=== PATIENT | female | born 1950 | race American Indian/Alaskan Native ===

== ENCOUNTER 2016-08-31 06:42 | Day surgery (SDC) | payer MEDICARE ==
[2016-08-23 07:48] VITALS: BMI 43.3
[2016-08-31 07:17] LABS: ADD MANUAL DIFF? NO
[2016-08-31 07:21] LABS: BASO # 0.01 K/mm3 (0.0-2.0); BASO % 0.2 % (0.0-3.0); EOS # 0.2 (0.0-0.7); EOS % 4.9 % (1.5-5.0); GRAN % 41.8 % (50.0-68.0); HEMATOCRIT 34.7 % (36.0-48.0); LYMPH # 1.9 (1.2-3.4); LYMPH % 45.3 % (22.0-35.0); MEAN CORPUSCULAR HEMOGLOBIN 29.3 pg (25.0-35.0); MEAN CORPUSCULAR HGB CONC 33.7 g/dl (31.0-37.0); MEAN PLATELET VOLUME 9.4 fl (7.0-11.0); MONO # 0.3 (0.1-0.6); MONO % 7.8 % (1.0-6.0); PLATELET COUNT 223 10^3/uL (120.0-450.0); RED CELL DISTRIBUTION WIDTH 14.4 % (11.5-14.5); WHITE BLOOD COUNT 4.1 10^3/ul (4.5-11.0)
[2016-08-31 07:31] LABS: PARTIAL THROMBOPLASTIN TIME 29.5 Seconds (23.7-30.8)
[2016-08-31 07:32] VITALS: TEMP 98
[2016-08-31 07:34] LABS: AMYLASE 185 U/L (35-125); LIPASE 471 U/L (23-300)
[2016-08-31 08:11] LABS: ALB/GLOB RATIO 1.2 (1.1-1.8); ALKALINE PHOSPHATASE 77 U/L (38-133); ALT/SGPT 30 U/L (7-56); AST/SGOT 33 U/L (15-39); BILIRUBIN,TOTAL 0.4 mg/dL (0.2-1.3); BLOOD UREA NITROGEN 17 mg/dL (7-21); CALCIUM 9.5 mg/dL (8.4-10.5); CARBON DIOXIDE 25 mmol/L (21-33); CHLORIDE 108 mmol/L (95-110); GFR AFRICAN-AMERICAN > 60; GLUCOSE,RANDOM 112 mg/dL (70-110); POTASSIUM 3.8 mmol/L (3.6-5.0); SODIUM 139 mmol/L (132-148); TOTAL PROTEIN 7.3 g/dL (5.8-8.3)
[2016-08-31] MEDS ORDERED: Sodium Chloride 0.9% 1,000 ML IV SCH (08:15)
[2016-08-31] MEDS ORDERED: Phenylephrine 10 mg/ml Inj ONE (08:40)
[2016-08-31] MEDS ORDERED: ePHEDrine 50 mg/ml Inj ONE (08:40)
[2016-08-31] MEDS ORDERED: Propofol 10 mg/ml Inj (20 ML) ONE ×2 (08:42→09:23)
[2016-08-31 14:30] VITALS: BP 125/76; PULSE 58; RESP 14; O2SAT 98
== END 2016-08-31 13:00 | disposition home or self-care (01) ==
LOC: ENDO 06:42
PROVIDERS: ATTEND Internal Medicine Gastroenterology
DX: K25.9 Gastric ulcer, unspecified as acute or chronic, without hemorrhage or perforation (principal); K80.20 Calculus of gallbladder without cholecystitis without obstruction; K29.50 Unspecified chronic gastritis without bleeding
CPT/HCPCS: 36415; 43237; 43239; 80053; 82150; 82977; 83690; 85025; 85610; 85730; 88305; 88342; J2001; J2370; J2704; J3010; J7040 ×2

== ENCOUNTER 2017-04-30 08:47 | Day surgery (SDC) | payer MEDICARE ==
[2017-04-22 14:55] VITALS: BMI 43.0
[2017-04-30 09:53] VITALS: O2SAT 98
[2017-04-30] MEDS ORDERED: Propofol 10 mg/ml Inj (20 ML) ONE (10:42)
[2017-04-30 12:28] VITALS: BP 108/59; PULSE 60; RESP 18; TEMP 97.6
== END 2017-04-30 13:29 | disposition home or self-care (01) ==
LOC: ENDO 08:47
PROVIDERS: ATTEND Internal Medicine Gastroenterology
DX: K29.50 Unspecified chronic gastritis without bleeding (principal); K44.9 Diaphragmatic hernia without obstruction or gangrene; D50.9 Iron deficiency anemia, unspecified
CPT/HCPCS: 43239; 88305; 88342; J2001; J2704; J3010; J7040

== ENCOUNTER 2018-02-03 23:07 | Inpatient (IN) | payer MEDICARE, OTHER ==
[2018-02-03 23:10] VITALS: BMI 43.3
[2018-02-04] MEDS ORDERED: Morphine 2 mg/ml ISec IVP STA (00:08)
--- NOTE | 2018-02-04 01:19 | ED PDOC ---
Arrival/HPI - General Chief Complaint: Trauma Time Seen by Provider: 02/03/18 23:15 Historian: Patient - History of Present Illness Narrative History of Present Illness (Text): 02/03/18 23:51 67 year old female, with no significant past medical history, presents to the emergency department for evaluation, status post mechanical fall. Patient states she was walking at home and tripped over shoes. Patient states she landed on her right arm. Patient informs she is unable to move her right arm. Patient denies hitting head, loss of consciousness, headache, or any other complaints. Time/Duration: Prior to Arrival Symptom Onset: Sudden Context: Home Past Medical History - Provider Review Nursing Documentation Reviewed: Yes - Infectious Disease Hx of Infectious Diseases: None - Cardiac Hx Cardiac Disorders: Yes Hx Hypertension: Yes - Pulmonary Hx Respiratory Disorders: No - Neurological Hx Neurological Disorder: No Other/Comment: Neuropathy - HEENT Hx HEENT Disorder: No - Renal Hx Renal Disorder: No - Endocrine/Metabolic Hx Endocrine Disorders: Yes Hx Diabetes Mellitus Type 2: Yes - Hematological/Oncological Hx Blood Disorders: Yes Hx Blood Transfusions: Yes Hx Blood Transfusion Reaction: No - Integumentary Hx Dermatological Disorder: No - Musculoskeletal/Rheumatological Hx Musculoskeletal Disorders: No - Gastrointestinal Hx Gastrointestinal Disorders: No - Genitourinary/Gynecological Hx Genitourinary Disorders: No - Psychiatric Hx Psychophysiologic Disorder: No Hx Substance Use: No - Surgical History Hx Appendectomy: Yes (childhood) - Anesthesia Hx Anesthesia Reactions: No Hx Malignant Hyperthermia: No - Suicidal Assessment Feels Threatened In Home Enviroment: No Family/Social History - Physician Review Nursing Documentation Reviewed: Yes Family/Social History: No Known Family HX Smoking Status: Never Smoked Hx Alcohol Use: No Hx Substance Use: No Allergies/Home Meds Allergies/Adverse Reactions: Allergies No Known Allergies Allergy (Verified 02/03/18 23:10) Home Medications: Home Meds Medication Instructions Recorded Confirmed Aspirin 81 mg PO DAILY 02/19/15 02/04/18 Insulin Human NPH [Humulin N] 22 units SUBCUT QPM 02/19/15 02/04/18 Insulin Human NPH [Humulin N] 40 units SUBCUT ACB 02/19/15 02/04/18 Losartan Potassium [Cozaar] 100 mg PO DAILY 02/19/15 02/04/18 Terazosin HCl [Terazosin] 5 mg PO DAILY 02/19/15 02/04/18 Cholecalciferol (Vitamin D3) 1,000 iu PO DAILY 09/23/15 02/04/18 [Vitamin D] Eplerenone 50 mg PO DAILY 09/23/15 02/04/18 Hydrochlorothiazide [Microzide] 25 tab PO DAILY 08/31/16 02/04/18 Pregabalin [Lyrica] 150 mg PO BID 08/31/16 02/04/18 Omeprazole 20 mg PO DAILY 04/22/17 02/04/18 Multivitamin [K[employer] 1 ctb PO DAILY 11/26/17 02/04/18 Multivitamin] Review of Systems - Physician Review All systems were reviewed & negative as marked: Yes - Review of Systems Neurological: absent: Headache, Other (No head trauma; No LOC) Physical Exam Vital Signs Reviewed: Yes Vital Signs Temp Pulse Resp BP Pulse Ox 02/03/18 23:19 97.5 F L 59 L 18 147/55 L 98 Temperature: Afebrile Blood Pressure: Normal Pulse: Regular Respiratory Rate: Normal Appearance: Positive for: Well-Appearing, Non-Toxic, Comfortable Pain Distress: None Mental Status: Positive for: Alert and Oriented X 3 - Systems Exam Head: Present: Atraumatic, Normocephalic Pupils: Present: PERRL Extroacular Muscles: Present: EOMI Conjunctiva: Present: Normal Mouth: Present: Moist Mucous Membranes Neck: Present: Normal Range of Motion Respiratory/Chest: Present: Clear to Auscultation, Good Air Exchange. No: Respiratory Distress, Accessory Muscle Use Cardiovascular: Present: Regular Rate and Rhythm, Normal S1, S2. No: Murmurs Abdomen: No: Tenderness, Distention, Peritoneal Signs Back: Present: Normal Inspection Upper Extremity: Present: NORMAL PULSES, Tenderness (Diffuse tenderness to upper right arm). No: Normal ROM (Minimal movement) Lower Extremity: Present: Normal Inspection. No: Edema Neurological: Present: GCS=15, CN II-XII Intact, Speech Normal Skin: Present: Warm, Dry, Normal Color. No: Rashes Psychiatric: Present: Alert, Oriented x 3, Normal Insight, Normal Concentration Medical Decision Making ED Course and Treatment: 02/04/18 00:30 Impression: 67 year old female presents for evaluation status post mechanical fall. Plan: -- Labs -- Chest X-ray -- Morphine -- X-ray elbow right -- X-ray Humerus right -- X-ray shoulder right -- Reassess and disposition Prior Visits: Notes and results from previous visits were reviewed. Progress Notes: 02/04/18 00:[address] Ruff who admits patient to his service. Spoke with Dr Swann who states he will see patient in the morning. - RAD Interpretation Radiology Orders: 02/03/18 23:31 ELBOW RIGHT 3 VIEWS ROUTINE [RAD] Stat HUMERUS RIGHT [RAD] Stat SHOULDER RIGHT [RAD] Stat 02/04/18 00:32 CHEST ONE VIEW [RAD] Stat - Medication Orders Current Medication Orders: Discontinued Medications Morphine Sulfate (Morphine) 2 mg IVP STAT STA Stop: 02/04/18 00:09 - Scribe Statement The provider has reviewed the documentation as recorded by the Brigido Rios Provider Scribe Attestation: All medical record entries made by the Scribe were at my direction and personally dictated by me. I have reviewed the chart and agree that the record accurately reflects my personal performance of the history, physical exam, medical decision making, and the department course for this patient. I have also personally directed, reviewed, and agree with the discharge instructions and disposition. Disposition/Present on Arrival - Present on Arrival Any Indicators Present on Arrival: No History of DVT/PE: No History of Uncontrolled Diabetes: No Urinary Catheter: No History of Decub. Ulcer: No History Surgical Site Infection Following: None - Disposition Have Diagnosis and Disposition been Completed?: Yes Diagnosis: Comminuted fracture of humerus Disposition: HOSPITALIZED Disposition Time: 01:15 Condition: STABLE
[2018-02-04 02:23] LABS: BASO # 0.01 K/mm3 (0.0-2.0); BASO % 0.1 % (0.0-3.0); EOS % 0.1 % (1.5-5.0); GRAN # 7.09 (1.4-6.5); GRAN % 83.2 % (50.0-68.0); HEMOGLOBIN 10.7 g/dL (12.0-16.0); LYMPH # 1.1 (1.2-3.4); LYMPH % 12.4 % (22.0-35.0); MEAN CELL VOLUME 88.1 fl (80.0-105.0); MEAN CORPUSCULAR HEMOGLOBIN 28.4 pg (25.0-35.0); MEAN CORPUSCULAR HGB CONC 32.2 g/dl (31.0-37.0); MEAN PLATELET VOLUME 10.4 fl (7.0-11.0); MONO # 0.4 (0.1-0.6); MONO % 4.2 % (1.0-6.0); RBC 3.77 10^6/uL (3.5-6.1); RED CELL DISTRIBUTION WIDTH 15.3 % (11.5-14.5); WHITE BLOOD COUNT 8.5 10^3/uL (4.5-11.0)
[2018-02-04 02:47] LABS: ALB/GLOB RATIO 1.1 (1.1-1.8); ALBUMIN 4.1 g/dL (3.0-4.8); ALT/SGPT 28 U/L (7-56); AST/SGOT 31 U/L (14-36); BLOOD UREA NITROGEN 22 mg/dL (7-21); CALCIUM 9.4 mg/dL (8.4-10.5); GFR NON-AFRICAN AMERICAN 55
--- NOTE | 2018-02-04 07:21 | CP.PCM.HP ---
<ShayeSheldon mckenzie - Last Filed: 02/04/18 20:40> History of Present Illness - History of Present Illness History of Present Illness: H&P for Dr. Oquendo Service CC: Mechanical fall and right arm pain This is a 67 yo F with PMH of HTN and DMII with neuropathy who presents s/p mechanical fall onto right arm, with intractable pain, found to have humeral fracture on imaging. As per patient, tripped over her shoes and a plastic bag, did not hit her head or lose consciousness, but was unable to rise to standing position due to pain and disabled arm. Found down on ground by friend and helped up, then brought to [facility] [place] Reports unable to move right arm, but denies loss of motor control or sensation, no numbness, arm not resting limply, just too painful to move. Seen by Ortho (Dr. Swann) this AM, requesting second opinion. Otherwise appears to be resting comfortably in bed on current regimen at time of exam. Oriented to self, location, year, no signs of cervical/cranial bleeding/hematoma/bruising. Denies changes in vision, nausea, emesis, diarrhea, dysuria. 12-system reviewed and negative except as above. PMH: as above PSH: Appendectomy Fam Hx: denies relevant hx Soc Hx: denies tobacco/alcohol/illicits PMD: Dr. Soto Present on Admission - Present on Admission Any Indicators Present on Admission: No History of DVT/PE: No History of Uncontrolled Diabetes: No Review of Systems - Review of Systems All systems: reviewed and no additional remarkable complaints except (as per HPI) Past Patient History - Infectious Disease Hx of Infectious Diseases: None - Past Social History Smoking Status: Never Smoked - CARDIAC Hx Cardiac Disorders: Yes Hx Hypertension: Yes - PULMONARY Hx Respiratory Disorders: No - NEUROLOGICAL Hx Neurological Disorder: No Other/Comment: Neuropathy - HEENT Hx HEENT Problems: No - RENAL Hx Chronic Kidney Disease: No - ENDOCRINE/METABOLIC Hx Endocrine Disorders: Yes Hx Diabetes Mellitus Type 2: Yes - HEMATOLOGICAL/ONCOLOGICAL Hx Blood Disorders: Yes Hx Blood Transfusions: Yes Hx Blood Transfusion Reaction: No - INTEGUMENTARY Hx Dermatological Problems: No - MUSCULOSKELETAL/RHEUMATOLOGICAL Hx Musculoskeletal Disorders: No - GASTROINTESTINAL Hx Gastrointestinal Disorders: No - GENITOURINARY/GYNECOLOGICAL Hx Genitourinary Disorders: No - PSYCHIATRIC Hx Psychophysiologic Disorder: No Hx Substance Use: No - SURGICAL HISTORY Hx Appendectomy: Yes (childhood) - ANESTHESIA Hx Anesthesia Reactions: No Hx Malignant Hyperthermia: No Meds Allergies/Adverse Reactions: Allergies Allergy/AdvReac Type Severity Reaction Status Date / Time No Known Allergies Allergy Verified 02/03/18 23:10 Physical Exam - Constitutional Appears: Non-toxic, No Acute Distress - Head Exam Head Exam: ATRAUMATIC, NORMAL INSPECTION, NORMOCEPHALIC - Eye Exam Eye Exam: EOMI, Normal appearance. absent: Conjunctival injection, Scleral icterus Pupil Exam: absent: Irregular, Unequal - ENT Exam ENT Exam: Mucous Membranes Moist - Neck Exam Neck exam: Positive for: Full Rom, Normal Inspection - Respiratory Exam Respiratory Exam: Clear to Auscultation Bilateral, NORMAL BREATHING PATTERN. absent: Accessory Muscle Use, Chest Wall Tenderness, Decreased Breath Sounds, Rales, Rhonchi, Wheezes - Cardiovascular Exam Cardiovascular Exam: REGULAR RHYTHM, RRR, +S1, +S2. absent: Bradycardia, Tachycardia, Irregular Rhythm, JVD, +S4 - GI/Abdominal Exam GI & Abdominal Exam: Normal Bowel Sounds, Soft. absent: Diminished Bowel Sounds, Distended, Firm, Hyperactive Bowel Sounds, Hypoactive Bowel Sounds, Rigid, Tenderness - Extremities Exam Additional comments: Upper extremity: Left UE: unremarkable, full active and passive ROM, no deformity Right UE: in sling, held stiff, patient not allowing active or passive movement, distal sensation in hand intact (including 2-point discrimination) Lower extremity: Bilateral LE intact, full active/passive ROM, no pedal edema or tenderness, no swelling appreciated - Neurological Exam Additional comments: awake and alert, moving all extremities (except RUE) spontaneously, following all commands appropriately - Psychiatric Exam Psychiatric exam: Normal Affect, Normal Mood - Skin Skin Exam: Dry, Intact, Normal Color, Warm Results - Vital Signs Recent Vital Signs: Last Vital Signs Temp 99.6 F 02/04/18 03:37 Pulse 71 02/04/18 03:37 Resp 20 02/04/18 03:37 BP 146/76 02/04/18 03:37 Pulse Ox 99 02/04/18 03:37 - Labs Result Diagrams: 02/04/18 01:59 02/04/18 02:32 Labs: Laboratory Results - last 24 hr 02/04/18 02/04/18 01:59 02:32 WBC 8.5 RBC 3.77 Hgb 10.7 L Hct 33.2 L MCV 88.1 MCH 28.4 MCHC 32.2 RDW 15.3 H Plt Count 263 MPV 10.4 Gran % 83.2 H Lymph % (Auto) 12.4 L [place] % (Auto) 4.2 Eos % (Auto) 0.1 L Baso % (Auto) 0.1 Gran # 7.09 H Lymph # (Auto) 1.1 L [place] # (Auto) 0.4 Eos # (Auto) 0.0 Baso # (Auto) 0.01 Sodium 141 Potassium 4.4 Chloride 107 Carbon Dioxide 27 Anion Gap 11 BUN 22 H Creatinine 1.0 Est GFR ( Amer) > 60 Est GFR (Non-Af Amer) 55 Random Glucose 114 H Calcium 9.4 Total Bilirubin 0.4 AST 31 ALT 28 Alkaline Phosphatase 108 Total Protein 8.0 Albumin 4.1 Globulin 3.9 Albumin/Globulin Ratio 1.1 Assessment & Plan - Assessment and Plan (Free Text) Assessment: This is a 67 yo F with PMH of HTN and DMII with neuropathy who presents s/p mechanical fall onto right arm, with intractable pain, found to have humeral fracture on imaging. Pending 2nd ortho opinion prior to considering surgery. Plan: 1) Mechanical fall onto RUE with humeral fx -Ortho (Dr. Swann) consulted, appreciate his recs; recs conservative tx, collar/cuff and no weight bearing for 6 weeks -Dr. Baldwin (ortho) consulted for 2nd opinion, appreciate his recs; pending patient decision for OR vs non-OR, hip xray to r/o hip fx -Pain control 2) Chronic issues: -HTN: continue home losartan -DM: continue home insulin regimen -Neuropathy: continue lyrica Dispo: pending pt decision for surgical vs non-surgical management Ppx: SCDs for DVT Reviewed and discussed with attending, Dr. Oquendo <Carlin Oquendo S - Last Filed: 02/04/18 21:42> Results - Vital Signs Recent Vital Signs: Last Vital Signs Temp 99.6 F 02/04/18 03:37 Pulse 71 02/04/18 03:37 Resp 20 02/04/18 03:37 BP 146/76 02/04/18 03:37 Pulse Ox 99 02/04/18 03:37 - Labs Result Diagrams: 02/04/18 01:59 02/04/18 02:32 Labs: Laboratory Results - last 24 hr 02/04/18 02/04/18 02/04/18 01:59 02:32 07:30 WBC 8.5 RBC 3.77 Hgb 10.7 L Hct 33.2 L MCV 88.1 MCH 28.4 MCHC 32.2 RDW 15.3 H Plt Count 263 MPV 10.4 Gran % 83.2 H Lymph % (Auto) 12.4 L [place] % (Auto) 4.2 Eos % (Auto) 0.1 L Baso % (Auto) 0.1 Gran # 7.09 H Lymph # (Auto) 1.1 L [place] # (Auto) 0.4 Eos # (Auto) 0.0 Baso # (Auto) 0.01 PT 12.5 INR 1.09 APTT 28.6 Sodium 141 Potassium 4.4 Chloride 107 Carbon Dioxide 27 Anion Gap 11 BUN 22 H Creatinine 1.0 Est GFR ( Amer) > 60 Est GFR (Non-Af Amer) 55 POC Glucose (mg/dL) Random Glucose 114 H Calcium 9.4 Iron TIBC % Saturation Ferritin Total Bilirubin 0.4 AST 31 ALT 28 Alkaline Phosphatase 108 Total Protein 8.0 Albumin 4.1 Globulin 3.9 Albumin/Globulin Ratio 1.1 02/04/18 02/04/18 02/04/18 07:30 07:30 08:18 WBC RBC Hgb Hct MCV MCH MCHC RDW Plt Count MPV Gran % Lymph % (Auto) [place] % (Auto) Eos % (Auto) Baso % (Auto) Gran # Lymph # (Auto) [place] # (Auto) Eos # (Auto) Baso # (Auto) PT INR APTT Sodium Potassium Chloride Carbon Dioxide Anion Gap BUN Creatinine Est GFR ( Amer) Est GFR (Non-Af Amer) POC Glucose (mg/dL) 106 Random Glucose Calcium Iron 40 L TIBC 272 % Saturation 15 L Ferritin 18.8 Total Bilirubin AST ALT Alkaline Phosphatase Total Protein Albumin Globulin Albumin/Globulin Ratio 02/04/18 02/04/18 11:15 16:21 WBC RBC Hgb Hct MCV MCH MCHC RDW Plt Count MPV Gran % Lymph % (Auto) [place] % (Auto) Eos % (Auto) Baso % (Auto) Gran # Lymph # (Auto) [place] # (Auto) Eos # (Auto) Baso # (Auto) PT INR APTT Sodium Potassium Chloride Carbon Dioxide Anion Gap BUN Creatinine Est GFR ( Amer) Est GFR (Non-Af Amer) POC Glucose (mg/dL) 129 H 165 H Random Glucose Calcium Iron TIBC % Saturation Ferritin Total Bilirubin AST ALT Alkaline Phosphatase Total Protein Albumin Globulin Albumin/Globulin Ratio Assessment & Plan - Assessment and Plan (Free Text) Plan: Pt seen and examined. I have reviewed the note of the medical pathology teacher and agree with it. I have discussed the assessment and plan with the resident. I have reviewed the patient's labs and medications. Pt had a fall and has a R humeral fx. Pt will need ortho evaluation. Pt is on Losartan for HTN. She has DM-2 and will be on Insulin for coverage. She will continue with Lyrica for her neuropathy. She may need surgery. I will get Cardio to evaluate for pre-op. Pain is controlled.
[2018-02-04 07:54] LABS: INR 1.09; PARTIAL THROMBOPLASTIN TIME 28.6 Seconds (25.1-36.5); PROTHROMBIN TIME 12.5 SECONDS (9.4-12.5)
[2018-02-04] MEDS: Morphine 2 mg/ml ISec IVP PRN ×2 (08:38→14:57)
[2018-02-04] MEDS: Insulin Human NPH 1 UNITS/0.01 ML SC SCH ×2 (08:38→17:28)
--- NOTE | 2018-02-04 08:44 | CON ---
DATE OF CONSULTATION: 02/04/2018 ORTHOPEDIC CONSULTATION HISTORY OF PRESENT ILLNESS: The patient is a 67-year-old female who slipped and fell at home, landing on her right shoulder. X-ray shows a comminuted, mildly displaced fracture right proximal humerus, being right-hand dominant, and was closed injury. Good neurovascular status. When I saw her today in the morning of 02/04/2018, she was sitting up in bed. I told her that this fracture could be treated conservatively as long as she follows the instructions of not leaning on it and keeping the arm in a dependent position in a collar and a cuff that we could fabricate and to allow it to heal for 6 weeks, and as long as she does not put weight on it, she will have good results. Right after the conversation, she said she has another physician to go to, orthopedic that other family members use, so she is going to follow up with another orthopedic doctor and hopefully she does well and I will be around if she needs me. FINAL DIAGNOSIS: Comminuted fracture proximal humerus surgical neck with some impaction and hopefully could be treated conservatively with collar and cuff and dependency and no weightbearing on that right shoulder. Mauro Swann DO
[2018-02-04 09:36] LABS: IRON 40 ug/dL (45-180)
[2018-02-04 09:45] LABS: % IRON SATURATION 15 % (20-55); TOTAL IRON BINDING CAPACITY 272 ug/dL (265-497)
[2018-02-04] MEDS: Cholecalciferol 1,000 INTLU TAB PO SCH (09:55)
[2018-02-04] MEDS: TERAZOSIN HCL 5 MG PO SCH (09:56)
--- NOTE | 2018-02-04 10:20 | RAD ---
Date of service: 02/03/2018 PROCEDURE: Radiographs of the Right Shoulder HISTORY: s/p fall r/o fx COMPARISON: No prior. FINDINGS: BONES: There is a comminuted impacted fracture of the proximal right humerus at the level of the proximal metaphysis and inferior portion of the right humeral head. Several fragments are identified in the major distal fracture fragment appears not only impacted but also displaced posteriorly mildly. No dislocation. Degenerative changes seen the acromioclavicular joint and are advanced including prominent osteophyte development. JOINTS: As above. SOFT TISSUES: Normal. OTHER FINDINGS: None. IMPRESSION: Comminuted impacted fracture proximal metaphysis right humerus without dislocation. 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
--- NOTE | 2018-02-04 10:22 | RAD ---
Date of service: 02/04/2018 PROCEDURE: Radiographs of the right elbow. HISTORY: s/p fall r/o fx COMPARISON: No prior. FINDINGS: BONES: No acute fracture identified or dislocation. There are degenerative osteophytes or chronic avulsion/chip fracture seen related to the medial margins of the humeral ulnar joint with radiohumeral joint compartment unremarkable. JOINTS: Limited degenerative cortical sclerosis appreciate throughout the elbow joint with limited osteophyte development seen medially. SOFT TISSUES: Normal. JOINT EFFUSION: None. OTHER FINDINGS: None. IMPRESSION: No acute fracture or dislocation identified. Degenerative changes seen at the medial side of the elbow joint with small heterotopic calcification, chip or avulsion fracture components seen medial to the humeral ulnar segment of the joint.
--- NOTE | 2018-02-04 10:29 | RAD ---
PROCEDURE: Radiographs of the right humerus. HISTORY: s/p fall r/o fx COMPARISON: None. FINDINGS: BONES: A comminuted fracture of the proximal metaphysis right humerus is identified with impaction and posterior distraction of the major fracture fragment described in in detail in separate right shoulder radiograph series. No dislocation grossly evident. Remainder of the humerus appears otherwise intact. SOFT TISSUES: Normal. OTHER FINDINGS: None. IMPRESSION: Impacted, comminuted fracture proximal right humerus. Right humerus otherwise unremarkable. Please see separate right shoulder radiograph series 02/04/2018 for additional detail.
--- NOTE | 2018-02-04 10:30 | RAD ---
Date of service: 02/04/2018 HISTORY: r/o infiltrate COMPARISON: Chest radiograph 04/17/2012. FINDINGS: LUNGS: No acute infiltrate bilaterally. Linear atelectasis or fibrosis in the inferior left lung zone laterally. Positioning of the right chest obscures upper mediastinum. PLEURA: No significant pleural effusion identified, no pneumothorax apparent. CARDIOVASCULAR: No aortic atherosclerotic calcification present. Normal cardiac size. No pulmonary vascular congestion. OSSEOUS STRUCTURES: No significant abnormalities. VISUALIZED UPPER ABDOMEN: Normal. OTHER FINDINGS: None. IMPRESSION: No acute infiltrate or pleural effusion bilaterally. Limited linear atelectasis or fibrosis left base. No pulmonary vascular congestion.
[2018-02-04] MEDS: Insulin Reg-HIGH-Coverage SC SCH ×2 (11:21→17:27)
--- NOTE | 2018-02-04 14:28 | RAD ---
Date of service: 02/04/2018 PROCEDURE: Pelvis and right hip HISTORY: right hip pain COMPARISON: TECHNIQUE: Two views FINDINGS: There is joint space narrowing with bony sclerosis in the acetabulum. There is no flattening of the femoral head. No evidence of fracture IMPRESSION: Severe joint space narrowing in the right hip.
--- NOTE | 2018-02-04 14:59 | CON ---
DATE: 02/04/2018 REASON FOR CONSULTATION: Right proximal humerus fracture. HISTORY OF PRESENT ILLNESS: This is a 67-year-old female with past medical history of high blood pressure and insulin-dependent diabetes, who presented status post fall with complaints of right shoulder pain. The patient also states she has some mild right hip pain, but states that she is able to ambulate. She denies any other injuries. PHYSICAL EXAMINATION GENERAL: On exam, this is a female in no apparent distress. She is awake, alert, and oriented x3. She has a BMI of 43. EXTREMITIES: The right upper extremity is in a sling. Her skin is intact. Neurovascularly, she is intact distally, has pain with passive range of motion of the shoulder. Nontender over the elbow, forearm, wrist, or hand. She had a good capillary refill in all her fingers. Evaluation of the right hip shows that she has some pain with active right hip flexion. She is tolerating some gentle passive internal and external rotation of the hip without significant pain. Her thigh and calf are otherwise soft and nontender. Neurovascularly, she is intact. Evaluation of the left lower extremity shows that she has no pain with passive or active range of motion of the left lower extremity. There is no swelling or deformity. Neurovascularly, she is intact. DIAGNOSTIC DATA: X-rays of the right shoulder show a comminuted but impacted proximal surgical neck and greater tuberosity fracture with some mild displacement. X-rays of the elbow show no acute fractures or dislocations, and some degenerative changes are noted. IMPRESSION: Right proximal humerus fracture. PLAN: I discussed the treatment options with the patient including nonsurgical versus surgical management. Surgery would entail an open reduction and internal fixation of the fracture. The risks and benefits were discussed with the patient at length of both nonsurgical as well as surgical options including nonunion, malunion as well as infection. At this point, the patient wants to think about it and has not made a decision that she wants to proceed. In the meantime, we are going to go ahead and order right hip x-rays to make sure that there is no fracture there. We will follow up once the x-rays are complete. Yannick Baldwin MD
[2018-02-04] MEDS: Oxycodone/Acetaminophen 5/325 mg Tab PO PRN (17:28)
[2018-02-05 07:51] LABS: BASO # 0.01 K/mm3 (0.0-2.0); BASO % 0.2 % (0.0-3.0); EOS # 0.1 (0.0-0.7); EOS % 2.1 % (1.5-5.0); GRAN # 3.56 (1.4-6.5); HEMOGLOBIN 9.9 g/dL (12.0-16.0); LYMPH # 2.1 (1.2-3.4); LYMPH % 33.2 % (22.0-35.0); MEAN CORPUSCULAR HGB CONC 32.2 g/dl (31.0-37.0); MEAN PLATELET VOLUME 9.7 fl (7.0-11.0); MONO # 0.5 (0.1-0.6); MONO % 7.5 % (1.0-6.0); RBC 3.53 10^6/uL (3.5-6.1); RED CELL DISTRIBUTION WIDTH 15.5 % (11.5-14.5); WHITE BLOOD COUNT 6.2 10^3/uL (4.5-11.0)
[2018-02-05 08:05] LABS: INR 1.13
[2018-02-05 08:10] LABS: ALBUMIN 3.6 g/dL (3.0-4.8); ALT/SGPT 24 U/L (7-56); AST/SGOT 59 U/L (14-36); BLOOD UREA NITROGEN 21 mg/dL (7-21); CALCIUM 8.9 mg/dL (8.4-10.5); GFR NON-AFRICAN AMERICAN 55; PARTIAL THROMBOPLASTIN TIME 27.5 Seconds (25.1-36.5)
[2018-02-05] MEDS: Oxycodone/Acetaminophen 5/325 mg Tab PO PRN ×3 (08:19→23:52)
[2018-02-05] MEDS: Cholecalciferol 1,000 INTLU TAB PO SCH (09:43)
[2018-02-05] MEDS: Insulin Human NPH 1 UNITS/0.01 ML SC SCH ×3 (09:43→17:35)
[2018-02-05] MEDS: TERAZOSIN HCL 5 MG PO SCH (09:44)
[2018-02-05] MEDS: Insulin Reg-HIGH-Coverage SC SCH ×3 (09:44→17:34)
--- NOTE | 2018-02-05 11:22 | CP.PCM.PN ---
Objective - Vital Signs/Intake and Output Vital Signs (last 24 hours): Temp Pulse Resp BP Pulse Ox 98.1 F 68 20 140/62 100 02/05/18 06:00 02/05/18 06:00 02/05/18 06:00 02/05/18 06:00 02/05/18 06:00 Intake and Output: 02/05/18 02/05/18 06:59 18:59 Intake Total 540 Balance 540 - Medications Medications: Current Medications Acetaminophen (Tylenol 325mg Tab) 650 mg PO Q4H PRN PRN Reason: Pain, Mild (1-3) Aspirin (Ecotrin) 81 mg PO DAILY [facility] Last Admin: 02/05/18 09:41 Dose: 81 mg Cholecalciferol (Vitamin D) 1,000 intlu PO DAILY [facility] Last Admin: 02/05/18 09:43 Dose: 1,000 intlu Hydrochlorothiazide (Hydrodiuril) 25 mg PO DAILY [facility] Last Admin: 02/05/18 09:43 Dose: 25 mg Insulin Human NPH (Humulin N) 22 units SC QPM [facility] Last Admin: 02/04/18 17:28 Dose: 22 u Insulin Human NPH (Humulin N) 40 units SC ACB [facility] Last Admin: 02/05/18 09:43 Dose: Not Given Insulin Human Regular (Humulin R High) 0 units SC ACHS [facility]; Protocol Last Admin: 02/05/18 09:44 Dose: Not Given Losartan Potassium (Cozaar) 100 mg PO DAILY [facility] Last Admin: 02/05/18 09:43 Dose: 100 mg Morphine Sulfate (Morphine) 2 mg IVP Q4H PRN PRN Reason: Pain, severe (8-10) Last Admin: 02/04/18 14:57 Dose: 2 mg Non-Formulary Medication (Terazosin Hcl [Terazosin Hcl]) 5 mg PO DAILY [facility] Last Admin: 02/05/18 09:44 Dose: Not Given Oxycodone/Acetaminophen (Percocet 5/325 Mg Tab) 1 tab PO Q4H PRN PRN Reason: Pain, moderate (4-7) Stop: 02/07/18 08:11 Last Admin: 02/05/18 08:19 Dose: 1 tab Pregabalin (Lyrica) 150 mg PO BID [facility] Last Admin: 02/05/18 09:42 Dose: 150 mg - Labs Labs: 02/05/18 07:30 02/05/18 07:30 PT 13.0 SECONDS (9.4-12.5) H 02/05/18 07:30 INR 1.13 02/05/18 07:30 APTT 27.5 Seconds (25.1-36.5) 02/05/18 07:30
--- NOTE | 2018-02-05 11:42 | CARD ---
APPROVED REPORT Date of service: 02/05/2018 EKG Measurement Heart [id number] <Conclusion> Normal sinus rhythm Minimal voltage criteria for LVH, may be normal variant Borderline ECG
--- NOTE | 2018-02-05 11:56 | CP.PCM.PN ---
Subjective - Date & Time of Evaluation Date of Evaluation: 02/05/18 Time of Evaluation: 11:50 - Subjective Subjective: Patient seen and examined, alert and awake, sitting up in bed. Patient denies any significant pain, numbness or tingling. She states she decided she would like to proceed with the surgery. VSS On examination of the right shoulder, RUE sling in place. Skin is intact. No obvious deformity. Significant swelling. Tolerating active range of motion of wrist and fingers. Sensation intact to light touch. Grossly she is intact distally. R proximal humerus fracture The risks, benefits and alternatives were again discussed with the patient with both the treatment options including ORIF of the right proximal humerus fracture vs maintaining the sling and allowing fracture to heal in the position it is in. She states she wants to proceed with the surgery. At this time we will plan for OR on Saturday morning for ORIF right proximal humerus fracture. Discussed above with Dr. Baldwin, he agrees. For now, continue NWB of RUE. Maintain sling. Continuous ice. Cont pain control Begin discharging planning for after surgery Objective - Vital Signs/Intake and Output Vital Signs (last 24 hours): Temp Pulse Resp BP Pulse Ox 98.1 F 68 20 140/62 100 02/05/18 06:00 02/05/18 06:00 02/05/18 06:00 02/05/18 06:00 02/05/18 06:00 Intake and Output: 02/05/18 02/05/18 06:59 18:59 Intake Total 540 Balance 540 - Medications Medications: Current Medications Acetaminophen (Tylenol 325mg Tab) 650 mg PO Q4H PRN PRN Reason: Pain, Mild (1-3) Aspirin (Ecotrin) 81 mg PO DAILY [facility] Last Admin: 02/05/18 09:41 Dose: 81 mg Cholecalciferol (Vitamin D) 1,000 intlu PO DAILY [facility] Last Admin: 02/05/18 09:43 Dose: 1,000 intlu Hydrochlorothiazide (Hydrodiuril) 25 mg PO DAILY [facility] Last Admin: 02/05/18 09:43 Dose: 25 mg Insulin Human NPH (Humulin N) 22 units SC QPM [facility] Last Admin: 02/04/18 17:28 Dose: 22 u Insulin Human NPH (Humulin N) 40 units SC ACB [facility] Last Admin: 02/05/18 09:43 Dose: Not Given Insulin Human Regular (Humulin R High) 0 units SC ACHS [facility]; Protocol Last Admin: 02/05/18 09:44 Dose: Not Given Losartan Potassium (Cozaar) 100 mg PO DAILY [facility] Last Admin: 02/05/18 09:43 Dose: 100 mg Morphine Sulfate (Morphine) 2 mg IVP Q4H PRN PRN Reason: Pain, severe (8-10) Last Admin: 02/04/18 14:57 Dose: 2 mg Non-Formulary Medication (Terazosin Hcl [Terazosin Hcl]) 5 mg PO DAILY [facility] Last Admin: 02/05/18 09:44 Dose: Not Given Oxycodone/Acetaminophen (Percocet 5/325 Mg Tab) 1 tab PO Q4H PRN PRN Reason: Pain, moderate (4-7) Stop: 02/07/18 08:11 Last Admin: 02/05/18 08:19 Dose: 1 tab Pregabalin (Lyrica) 150 mg PO BID [facility] Last Admin: 02/05/18 09:42 Dose: 150 mg - Labs Labs: 02/05/18 07:30 02/05/18 07:30 PT 13.0 SECONDS (9.4-12.5) H 02/05/18 07:30 INR 1.13 02/05/18 07:30 APTT 27.5 Seconds (25.1-36.5) 02/05/18 07:30
--- NOTE | 2018-02-05 16:38 | CON ---
DATE: 02/05/2018 REQUESTING PHYSICIAN: Dr. Oquendo. REASON FOR CONSULTATION: Preoperative evaluation. HISTORY: This is a 67-year-old woman, known to us from previous outpatient assessments, who presented to the emergency room yesterday morning after a fall at home. She states that she tripped in her house and fell on her right arm. She was found to have a right humeral fracture and surgery is planned for later this week. She denies any lightheadedness or syncope. She is unaware of any palpitations. She has had no chest pain or exertional dyspnea. She does have a history of hypertension and diabetes. She was evaluated with a stress test within the past 1 to 2 years, which was reportedly unremarkable. PAST MEDICAL HISTORY: Her past medical history is notable for the problems mentioned above. She has undergone a prior hysterectomy and appendectomy. She has had no issues with anesthesia in the past. MEDICATIONS: Her medications at home include, aspirin, insulin, losartan, terazosin, eplerenone, hydrochlorothiazide, Lyrica, and omeprazole. ALLERGIES: NONE. SOCIAL HISTORY: She does not smoke or drink. FAMILY HISTORY: Unremarkable for premature heart disease. REVIEW OF SYSTEMS: Ten-point review of systems is otherwise unremarkable. PHYSICAL EXAMINATION: GENERAL: She is an obese, middle-aged woman. VITAL SIGNS: Her blood pressure is 140/60 with a pulse of 68, respirations are 16. She is afebrile. HEENT: Normocephalic and atraumatic. NECK: Thick. CHEST: Few scattered rhonchi heard. HEART: PMI displaced laterally with a soft systolic murmur at the lower left sternal border. ABDOMEN: Soft, obese, nontender, normoactive bowel sounds. EXTREMITIES: Right arm is in a sling. No peripheral edema noted. SKIN: Warm and dry. PSYCHIATRIC: Normal mood and affect. NEUROLOGIC: Alert and oriented x3. No gross motor or sensory deficits appreciable. DIAGNOSTIC DATA: Potassium 4.1, BUN and creatinine are 21 and 1.0. Hemoglobin and hematocrit are 9.9 and 30.7 with a white count of 6.2, platelet count is 238,000. Electrocardiogram was not found in the chart or electronic record. Chest x-ray reveals normal cardiac silhouette with mild basilar atelectasis. IMPRESSION: 1. Recent fall with resultant humeral fracture in need of surgical repair. 2. Multiple cardiac risk factors, given hypertension and diabetes with no clear evidence of active cardiac ischemia and a negative stress test in the recent past. RECOMMENDATIONS: An EKG will be performed this morning. Assuming this is unremarkable, she appears stable and optimized from a cardiac standpoint to proceed with surgery as planned. Her cardiac risk appears average for her age at this time. We will be happy to follow along and make further recommendations as appropriate. Nolan Chew MD
--- NOTE | 2018-02-05 17:37 | CP.PCM.PN ---
<Sheldon Cr - Last Filed: 02/05/18 17:29> Subjective - Date & Time of Evaluation Date of Evaluation: 02/05/18 Time of Evaluation: 07:30 - Subjective Subjective: Progress Note for Dr. Oquendo Service Patient seen and examined at bedside. No acute events overnight. Patient has elected to undergo surgical repair of humeral fracture with Dr. Baldwin, she will notify him today. Reports decreased hand movement, cannot fully clench right hand; sensation remains intact. Remains wearing sling. Objective - Vital Signs/Intake and Output Vital Signs (last 24 hours): Temp Pulse Resp BP Pulse Ox 98.4 F 74 18 114/72 98 02/05/18 14:00 02/05/18 14:00 02/05/18 14:00 02/05/18 14:00 02/05/18 14:00 Intake and Output: 02/05/18 02/05/18 06:59 18:59 Intake Total 540 Balance 540 - Medications Medications: Current Medications Acetaminophen (Tylenol 325mg Tab) 650 mg PO Q4H PRN PRN Reason: Pain, Mild (1-3) Aspirin (Ecotrin) 81 mg PO DAILY [facility] Last Admin: 02/05/18 09:41 Dose: 81 mg Cholecalciferol (Vitamin D) 1,000 intlu PO DAILY [facility] Last Admin: 02/05/18 09:43 Dose: 1,000 intlu Hydrochlorothiazide (Hydrodiuril) 25 mg PO DAILY [facility] Last Admin: 02/05/18 09:43 Dose: 25 mg Insulin Human NPH (Humulin N) 22 units SC QPM [facility] Last Admin: 02/04/18 17:28 Dose: 22 u Insulin Human NPH (Humulin N) 40 units SC ACB [facility] Last Admin: 02/05/18 12:00 Dose: 40 u Insulin Human Regular (Humulin R High) 0 units SC ACHS [facility]; Protocol Last Admin: 02/05/18 12:01 Dose: 4 u Losartan Potassium (Cozaar) 100 mg PO DAILY [facility] Last Admin: 02/05/18 09:43 Dose: 100 mg Morphine Sulfate (Morphine) 2 mg IVP Q4H PRN PRN Reason: Pain, severe (8-10) Last Admin: 02/04/18 14:57 Dose: 2 mg Non-Formulary Medication (Terazosin Hcl [Terazosin Hcl]) 5 mg PO DAILY [facility] Last Admin: 02/05/18 09:44 Dose: Not Given Oxycodone/Acetaminophen (Percocet 5/325 Mg Tab) 1 tab PO Q4H PRN PRN Reason: Pain, moderate (4-7) Stop: 02/07/18 08:11 Last Admin: 02/05/18 08:19 Dose: 1 tab Pregabalin (Lyrica) 150 mg PO BID [facility] Last Admin: 02/05/18 09:42 Dose: 150 mg - Labs Labs: 02/05/18 07:30 02/05/18 07:30 PT 13.0 SECONDS (9.4-12.5) H 02/05/18 07:30 INR 1.13 02/05/18 07:30 APTT 27.5 Seconds (25.1-36.5) 02/05/18 07:30 - Additional Findings Additional findings: - Constitutional Appears: Non-toxic, No Acute Distress - Head Exam Head Exam: ATRAUMATIC, NORMAL INSPECTION, NORMOCEPHALIC - Eye Exam Eye Exam: EOMI, Normal appearance. absent: Conjunctival injection, Scleral icterus Pupil Exam: absent: Irregular, Unequal - ENT Exam ENT Exam: Mucous Membranes Moist - Neck Exam Neck exam: Positive for: Full Rom, Normal Inspection - Respiratory Exam Respiratory Exam: Clear to Auscultation Bilateral, NORMAL BREATHING PATTERN. ab sent: Accessory Muscle Use, Chest Wall Tenderness, Decreased Breath Sounds, Rales, Rhonchi, Wheezes - Cardiovascular Exam Cardiovascular Exam: REGULAR RHYTHM, RRR, +S1, +S2. absent: Bradycardia, Tachycardia, Irregular Rhythm, JVD, +S4 - GI/Abdominal Exam GI & Abdominal Exam: Normal Bowel Sounds, Soft. absent: Diminished Bowel Sounds, Distended, Firm, Hyperactive Bowel Sounds, Hypoactive Bowel Sounds, Rigid, Tenderness - Extremities Exam Upper extremity: Left UE: unremarkable, full active and passive ROM, no deformity Right UE: in sling, held stiff, patient not allowing active or passive movement, distal sensation in hand intact (including 2-point discrimination), cannot fully close hand into fist (unable to close approx skilled nursing) Lower extremity: Bilateral LE intact, full active/passive ROM, no pedal edema or tenderness, no swelling appreciated - Neurological Exam awake and alert, moving all extremities (except RUE) spontaneously, following all commands appropriately - Psychiatric Exam Psychiatric exam: Normal Affect, Normal Mood - Skin Skin Exam: Dry, Intact, Normal Color, Warm Assessment and Plan - Assessment and Plan (Free Text) Assessment: This is a 67 yo F with PMH of HTN and DMII with neuropathy who presents s/p mechanical fall onto right arm, with intractable pain, found to have humeral fracture on imaging. Pending surgical repair. Plan: 1) Mechanical fall onto RUE with humeral fx -Pt electing for surgical repair with Dr. Baldwin -Will likely need rehab after -Pain control 2) Chronic issues: -HTN: continue home losartan -DM: continue home insulin regimen -Neuropathy: continue lyrica Dispo: pending surgical repair Ppx: SCDs for DVT Reviewed and discussed with attending, Dr. Oquendo <Carlin Oquendo S - Last Filed: 02/05/18 21:27> Objective - Vital Signs/Intake and Output Vital Signs (last 24 hours): Temp Pulse Resp BP Pulse Ox 98.4 F 74 18 114/72 98 02/05/18 14:00 02/05/18 14:00 02/05/18 14:00 02/05/18 14:00 02/05/18 14:00 - Medications Medications: Current Medications Acetaminophen (Tylenol 325mg Tab) 650 mg PO Q4H PRN PRN Reason: Pain, Mild (1-3) Aspirin (Ecotrin) 81 mg PO DAILY [facility] Last Admin: 02/05/18 09:41 Dose: 81 mg Cholecalciferol (Vitamin D) 1,000 intlu PO DAILY [facility] Last Admin: 02/05/18 09:43 Dose: 1,000 intlu Hydrochlorothiazide (Hydrodiuril) 25 mg PO DAILY [facility] Last Admin: 02/05/18 09:43 Dose: 25 mg Insulin Human NPH (Humulin N) 22 units SC QPM [facility] Last Admin: 02/05/18 17:35 Dose: 22 u Insulin Human NPH (Humulin N) 40 units SC ACB [facility] Last Admin: 02/05/18 12:00 Dose: 40 u Insulin Human Regular (Humulin R High) 0 units SC ACHS [facility]; Protocol Last Admin: 02/05/18 17:34 Dose: Not Given Losartan Potassium (Cozaar) 100 mg PO DAILY [facility] Last Admin: 02/05/18 09:43 Dose: 100 mg Morphine Sulfate (Morphine) 2 mg IVP Q4H PRN PRN Reason: Pain, severe (8-10) Last Admin: 02/04/18 14:57 Dose: 2 mg Non-Formulary Medication (Terazosin Hcl [Terazosin Hcl]) 5 mg PO DAILY [facility] Last Admin: 02/05/18 09:44 Dose: Not Given Oxycodone/Acetaminophen (Percocet 5/325 Mg Tab) 1 tab PO Q4H PRN PRN Reason: Pain, moderate (4-7) Stop: 02/07/18 08:11 Last Admin: 02/05/18 17:42 Dose: 1 tab Pregabalin (Lyrica) 150 mg PO BID [facility] Last Admin: 02/05/18 17:35 Dose: 150 mg - Labs Labs: 02/05/18 07:30 02/05/18 07:30 PT 13.0 SECONDS (9.4-12.5) H 02/05/18 07:30 INR 1.13 02/05/18 07:30 APTT 27.5 Seconds (25.1-36.5) 02/05/18 07:30 Assessment and Plan - Assessment and Plan (Free Text) Plan: Pt seen and examined. I have reviewed the note of the medical appliance maker and agree with it. I have discussed the assessment and plan with the resident. I have reviewed the patient's labs and medications. Pt with R humeral fx and will need surgery. Pt is agreeable to surgery. Will wait for Ortho. HTN is controlled by Losartan. She is on Lyrica for Neuropathy. Pain is controlled. Pre-Op done by cardiology.
[2018-02-06] MEDS: Insulin Reg-HIGH-Coverage SC SCH ×4 (07:40→23:09)
[2018-02-06] MEDS: Insulin Human NPH 1 UNITS/0.01 ML SC SCH ×2 (07:40→17:49)
[2018-02-06 08:06] LABS: BASO # 0.03 K/mm3 (0.0-2.0); BASO % 0.5 % (0.0-3.0); EOS # 0.3 (0.0-0.7); EOS % 4.5 % (1.5-5.0); GRAN # 3.1 (1.4-6.5); HEMOGLOBIN 10.5 g/dL (12.0-16.0); LYMPH # 2.3 (1.2-3.4); LYMPH % 36.6 % (22.0-35.0); MEAN CELL VOLUME 87.1 fl (80.0-105.0); MEAN CORPUSCULAR HEMOGLOBIN 28.3 pg (25.0-35.0); MEAN CORPUSCULAR HGB CONC 32.5 g/dl (31.0-37.0); MEAN PLATELET VOLUME 9.7 fl (7.0-11.0); MONO # 0.5 (0.1-0.6); MONO % 8.4 % (1.0-6.0); RBC 3.71 10^6/uL (3.5-6.1); RED CELL DISTRIBUTION WIDTH 15.4 % (11.5-14.5); WHITE BLOOD COUNT 6.2 10^3/uL (4.5-11.0)
[2018-02-06 08:09] LABS: INR 1.04; PARTIAL THROMBOPLASTIN TIME 27.2 Seconds (25.1-36.5)
[2018-02-06 08:12] LABS: CALCIUM 9.2 mg/dL (8.4-10.5)
[2018-02-06] MEDS: TERAZOSIN HCL 5 MG PO SCH (09:20)
[2018-02-06] MEDS: Cholecalciferol 1,000 INTLU TAB PO SCH (09:20)
--- NOTE | 2018-02-06 09:24 | CP.PCM.PN ---
<Sheldon Cr - Last Filed: 02/06/18 20:13> Subjective - Date & Time of Evaluation Date of Evaluation: 02/06/18 Time of Evaluation: 07:30 - Subjective Subjective: Progress Note for Dr. Oquendo Service Patient seen and examined at bedside. No acute events overnight. Pending surgical repair tomorrow. Objective - Vital Signs/Intake and Output Vital Signs (last 24 hours): Temp Pulse Resp BP Pulse Ox 98.7 F 70 20 122/80 99 02/06/18 06:00 02/06/18 06:00 02/06/18 06:00 02/06/18 06:00 02/06/18 06:00 Intake and Output: 02/06/18 02/06/18 06:59 18:59 Intake Total 620 Balance 620 - Medications Medications: Current Medications Acetaminophen (Tylenol 325mg Tab) 650 mg PO Q4H PRN PRN Reason: Pain, Mild (1-3) Aspirin (Ecotrin) 81 mg PO DAILY [facility] Last Admin: 02/06/18 09:20 Dose: 81 mg Cholecalciferol (Vitamin D) 1,000 intlu PO DAILY [facility] Last Admin: 02/06/18 09:20 Dose: 1,000 intlu Hydrochlorothiazide (Hydrodiuril) 25 mg PO DAILY [facility] Last Admin: 02/06/18 09:20 Dose: 25 mg Insulin Human NPH (Humulin N) 22 units SC QPM [facility] Last Admin: 02/05/18 17:35 Dose: 22 u Insulin Human NPH (Humulin N) 40 units SC ACB [facility] Last Admin: 02/06/18 07:40 Dose: Not Given Insulin Human Regular (Humulin R High) 0 units SC ACHS [facility]; Protocol Last Admin: 02/06/18 07:40 Dose: Not Given Losartan Potassium (Cozaar) 100 mg PO DAILY [facility] Last Admin: 02/06/18 09:20 Dose: 100 mg Morphine Sulfate (Morphine) 2 mg IVP Q4H PRN PRN Reason: Pain, severe (8-10) Last Admin: 02/04/18 14:57 Dose: 2 mg Non-Formulary Medication (Terazosin Hcl [Terazosin Hcl]) 5 mg PO DAILY [facility] Last Admin: 02/06/18 09:20 Dose: Not Given Oxycodone/Acetaminophen (Percocet 5/325 Mg Tab) 1 tab PO Q4H PRN PRN Reason: Pain, moderate (4-7) Stop: 02/07/18 08:11 Last Admin: 02/05/18 23:52 Dose: 1 tab Pregabalin (Lyrica) 150 mg PO BID [facility] Last Admin: 02/06/18 09:20 Dose: 150 mg - Labs Labs: 02/06/18 07:40 02/06/18 07:40 PT 12.0 SECONDS (9.4-12.5) 02/06/18 07:40 INR 1.04 02/06/18 07:40 APTT 27.2 Seconds (25.1-36.5) 02/06/18 07:40 - Additional Findings Additional findings: - Constitutional Appears: Non-toxic, No Acute Distress - Head Exam Head Exam: ATRAUMATIC, NORMAL INSPECTION, NORMOCEPHALIC - Eye Exam Eye Exam: EOMI, Normal appearance. absent: Conjunctival injection, Scleral icterus Pupil Exam: absent: Irregular, Unequal - ENT Exam ENT Exam: Mucous Membranes Moist - Neck Exam Neck exam: Positive for: Full Rom, Normal Inspection - Respiratory Exam Respiratory Exam: Clear to Auscultation Bilateral, NORMAL BREATHING PATTERN. absent: Accessory Muscle Use, Chest Wall Tenderness, Decreased Breath Sounds, Rales, Rhonchi, Wheezes - Cardiovascular Exam Cardiovascular Exam: REGULAR RHYTHM, RRR, +S1, +S2. absent: Bradycardia, Tachycardia, Irregular Rhythm, JVD, +S4 - GI/Abdominal Exam GI & Abdominal Exam: Normal Bowel Sounds, Soft. absent: Diminished Bowel Sounds, Distended, Firm, Hyperactive Bowel Sounds, Hypoactive Bowel Sounds, Ri gid, Tenderness - Extremities Exam Upper extremity: Left UE: unremarkable, full active and passive ROM, no deformity Right UE: in sling, held stiff, patient not allowing active or passive movement, distal sensation in hand intact (including 2-point discrimination), cannot fully close hand into fist (unable to close approx care home) Lower extremity: Bilateral LE intact, full active/passive ROM, no pedal edema or tenderness, no swelling appreciated - Neurological Exam awake and alert, moving all extremities (except RUE) spontaneously, following all commands appropriately - Psychiatric Exam Psychiatric exam: Normal Affect, Normal Mood - Skin Skin Exam: Dry, Intact, Normal Color, Warm Assessment and Plan - Assessment and Plan (Free Text) Assessment: This is a 67 yo F with PMH of HTN and DMII with neuropathy who presents s/p mechanical fall onto right arm, with intractable pain, found to have humeral fracture on imaging. Pending surgical repair. Plan: 1) Mechanical fall onto RUE with humeral fx -Pt electing for surgical repair with Dr. Baldwin, to OR tomorrow -Pain control 2) Chronic issues: -HTN: continue home losartan -DM: continue home insulin regimen -Neuropathy: continue lyrica Dispo: pending surgical repair tomorrow, likely d/c tomorrow or Saturday Ppx: SCDs for DVT Reviewed and discussed with attending, Dr. Oquendo <Carlin Oquendo S - Last Filed: 02/06/18 20:35> Objective - Vital Signs/Intake and Output Vital Signs (last 24 hours): Temp Pulse Resp BP Pulse Ox 98.6 F 82 20 105/61 96 02/06/18 14:00 02/06/18 14:00 02/06/18 14:00 02/06/18 14:00 02/06/18 14:00 - Medications Medications: Current Medications Acetaminophen (Tylenol 325mg Tab) 650 mg PO Q4H PRN PRN Reason: Pain, Mild (1-3) Aspirin (Ecotrin) 81 mg PO DAILY [facility] Last Admin: 02/06/18 09:20 Dose: 81 mg Cholecalciferol (Vitamin D) 1,000 intlu PO DAILY [facility] Last Admin: 02/06/18 09:20 Dose: 1,000 intlu Hydrochlorothiazide (Hydrodiuril) 25 mg PO DAILY [facility] Last Admin: 02/06/18 09:20 Dose: 25 mg Insulin Human NPH (Humulin N) 22 units SC QPM [facility] Last Admin: 02/06/18 17:49 Dose: 22 u Insulin Human NPH (Humulin N) 40 units SC ACB [facility] Last Admin: 02/06/18 07:40 Dose: Not Given Insulin Human Regular (Humulin R High) 0 units SC ACHS [facility]; Protocol Last Admin: 02/06/18 17:20 Dose: 2 u Losartan Potassium (Cozaar) 100 mg PO DAILY [facility] Last Admin: 02/06/18 09:20 Dose: 100 mg Morphine Sulfate (Morphine) 2 mg IVP Q4H PRN PRN Reason: Pain, severe (8-10) Last Admin: 02/04/18 14:57 Dose: 2 mg Non-Formulary Medication (Terazosin Hcl [Terazosin Hcl]) 5 mg PO DAILY [facility] Last Admin: 02/06/18 09:20 Dose: Not Given Oxycodone/Acetaminophen (Percocet 5/325 Mg Tab) 1 tab PO Q4H PRN PRN Reason: Pain, moderate (4-7) Stop: 02/07/18 08:11 Last Admin: 02/06/18 11:20 Dose: 1 tab Pregabalin (Lyrica) 150 mg PO BID [facility] Last Admin: 02/06/18 17:19 Dose: 150 mg - Labs Labs: 02/06/18 07:40 02/06/18 07:40 PT 12.0 SECONDS (9.4-12.5) 02/06/18 07:40 INR 1.04 02/06/18 07:40 APTT 27.2 Seconds (25.1-36.5) 02/06/18 07:40 Assessment and Plan - Assessment and Plan (Free Text) Plan: Pt seen and examined. I have reviewed the note of the medical case worker and agree with it. I have discussed the assessment and plan with the resident. I have reviewed the patient's labs and medications. Pt with Chalo garcia. She had a fall causing the fx. She is scheduled for the OR in the am. She has been on Losa rtan for HTN. She is on ISS for DM-2. She is on Lyrical for Neuropathy.
[2018-02-06] MEDS: Oxycodone/Acetaminophen 5/325 mg Tab PO PRN ×2 (11:20→21:37)
[2018-02-06] MEDS: Morphine 2 mg/ml ISec IVP PRN (23:02)
[2018-02-07] MEDS ORDERED: Midazolam 2 MG/2 ML VIAL ONE (10:04)
[2018-02-07] MEDS ORDERED: Propofol 10 mg/ml Inj (20 ML) ONE (10:04)
[2018-02-07] MEDS ORDERED: Lidocaine PF 2% (5 ml) Inj (For Cardiac Arrhy) ONE (10:05)
[2018-02-07] MEDS ORDERED: Rocuronium 10 mg/ml (5 ml) ONE ×2 (10:06→11:15)
[2018-02-07] MEDS ORDERED: Bupivacaine 0.5% 50 ML IJ ONE ×2 (10:08→12:55)
--- NOTE | 2018-02-07 12:23 | CP.PCM.PN ---
<Sheldon Cr - Last Filed: 02/07/18 18:19> Subjective - Date & Time of Evaluation Date of Evaluation: 02/07/18 Time of Evaluation: 07:40 - Subjective Subjective: Progress Note for Dr. Oquendo Service Patient seen and examined at bedside. No acute events overnight. Pending surgical repair today. Objective - Vital Signs/Intake and Output Vital Signs (last 24 hours): Temp Pulse Resp BP Pulse Ox 99.2 F 79 18 118/67 94 L 02/07/18 09:50 02/07/18 09:50 02/07/18 09:50 02/07/18 09:50 02/07/18 09:50 Intake and Output: 02/07/18 02/07/18 06:59 18:59 Intake Total 960 Output Total 300 Balance 660 - Medications Medications: Current Medications Acetaminophen (Tylenol 325mg Tab) 650 mg PO Q4H PRN PRN Reason: Pain, Mild (1-3) Aspirin (Ecotrin) 81 mg PO DAILY [facility] Last Admin: 02/06/18 09:20 Dose: 81 mg Cholecalciferol (Vitamin D) 1,000 intlu PO DAILY [facility] Last Admin: 02/06/18 09:20 Dose: 1,000 intlu Hydrochlorothiazide (Hydrodiuril) 25 mg PO DAILY [facility] Last Admin: 02/06/18 09:20 Dose: 25 mg Insulin Human NPH (Humulin N) 22 units SC QPM [facility] Last Admin: 02/06/18 17:49 Dose: 22 u Insulin Human NPH (Humulin N) 40 units SC ACB [facility] Last Admin: 02/06/18 07:40 Dose: Not Given Insulin Human Regular (Humulin R High) 0 units SC ACHS [facility]; Protocol Last Admin: 02/06/18 23:09 Dose: Not Given Losartan Potassium (Cozaar) 100 mg PO DAILY [facility] Last Admin: 02/06/18 09:20 Dose: 100 mg Morphine Sulfate (Morphine) 2 mg IVP Q4H PRN PRN Reason: Pain, severe (8-10) Last Admin: 02/06/18 23:02 Dose: 2 mg Non-Formulary Medication (Terazosin Hcl [Terazosin Hcl]) 5 mg PO DAILY [facility] Last Admin: 02/06/18 09:20 Dose: Not Given Pregabalin (Lyrica) 150 mg PO BID [facility] Last Admin: 02/06/18 17:19 Dose: 150 mg - Labs Labs: 02/06/18 07:40 02/06/18 07:40 PT 12.0 SECONDS (9.4-12.5) 02/06/18 07:40 INR 1.04 02/06/18 07:40 APTT 27.2 Seconds (25.1-36.5) 02/06/18 07:40 - Additional Findings Additional findings: - Constitutional Appears: Non-toxic, No Acute Distress - Head Exam Head Exam: ATRAUMATIC, NORMAL INSPECTION, NORMOCEPHALIC - Eye Exam Eye Exam: EOMI, Normal appearance. absent: Conjunctival injection, Scleral icterus Pupil Exam: absent: Irregular, Unequal - ENT Exam ENT Exam: Mucous Membranes Moist - Neck Exam Neck exam: Positive for: Full Rom, Normal Inspection - Respiratory Exam Respiratory Exam: Clear to Auscultation Bilateral, NORMAL BREATHING PATTERN. absent: Accessory Muscle Use, Chest Wall Tenderness, Decreased Breath Sounds, Rales, Rhonchi, Wheezes - Cardiovascular Exam Cardiovascular Exam: REGULAR RHYTHM, RRR, +S1, +S2. absent: Bradycardia, Tachycardia, Irregular Rhythm, JVD, +S4 - GI/Abdominal Exam GI & Abdominal Exam: Normal Bowel Sounds, Soft. absent: Diminished Bowel Sounds, Distended, Firm, Hyperactive Bowel Sounds, Hypoactive Bowel Sounds, Rigid, Tenderness - Extremities Exam Upper extremity: Left UE: unremarkable, full active and passive ROM, no deformity Right UE: in sling, held stiff, patient not allowing active or passive movement, cannot fully close hand into fist (unable to close approx chcf) Lower extremity: Bilateral LE intact, full active/passive ROM, no pedal edema or tenderness, no swelling appreciated - Neurological Exam awake and alert, moving all extremities (except RUE) spontaneously, following all commands appropriately - Psychiatric Exam Psychiatric exam: Normal Affect, Normal Mood - Skin Skin Exam: Dry, Intact, Normal Color, Warm Assessment and Plan - Assessment and Plan (Free Text) Assessment: This is a 67 yo F with PMH of HTN and DMII with neuropathy who presents s/p mechanical fall onto right arm, with intractable pain, found to have humeral fracture on imaging. Pending surgical repair today. Plan: 1) Mechanical fall onto RUE with humeral fx -OR today for surgical repair; discussed with Ortho, procedure went well, clear for discharge with pain control tomorrow from Ortho standpoint -Pain control as per ortho -Pending eval by PT given falls precipitating fx; too lethargic to participate with PT today post-op, will assess again tomorrow 2) Chronic issues: -HTN: continue home losartan -DM: continue home insulin regimen -Neuropathy: continue lyrica Dispo: post-op for humeral fracture repair, pending PT assessment to determine if rehab needed given fall precipitating fx, if not then d/c to home tomorrow Ppx: SCDs for DVT Reviewed and discussed with attending, Dr. Oquendo <Carlin Oquendo S - Last Filed: 02/08/18 17:37> Objective - Vital Signs/Intake and Output Vital Signs (last 24 hours): Temp Pulse Resp BP Pulse Ox 99.8 F H 92 H 20 112/63 95 02/08/18 07:30 02/08/18 07:30 02/08/18 07:30 02/08/18 07:30 02/08/18 07:30 Intake and Output: 02/08/18 02/08/18 06:59 18:59 Intake Total 340 Balance 340 - Medications Medications: Current Medications Acetaminophen (Tylenol 325mg Tab) 650 mg PO Q4H PRN PRN Reason: Pain, Mild (1-3) Aspirin (Ecotrin) 81 mg PO DAILY [facility] Last Admin: 02/08/18 09:21 Dose: 81 mg Cholecalciferol (Vitamin D) 1,000 intlu PO DAILY [facility] Last Admin: 02/08/18 09:21 Dose: 1,000 intlu Docusate Sodium (Colace) 100 mg PO BID [facility] Last Admin: 02/08/18 17:11 Dose: 100 mg Hydrochlorothiazide (Hydrodiuril) 25 mg PO DAILY [facility] Last Admin: 02/08/18 09:19 Dose: 25 mg Insulin Human NPH (Humulin N) 22 units SC QPM [facility] Last Admin: 02/07/18 17:41 Dose: Not Given Insulin Human NPH (Humulin N) 40 units SC ACB [facility] Last Admin: 02/08/18 09:25 Dose: 40 units Insulin Human Regular (Humulin R High) 0 units SC ACHS [facility]; Protocol Last Admin: 02/08/18 16:39 Dose: 2 units Losartan Potassium (Cozaar) 100 mg PO DAILY [facility] Last Admin: 02/08/18 09:19 Dose: 100 mg Morphine Sulfate (Morphine) 4 mg IVP Q4H PRN PRN Reason: Pain, severe (8-10) Last Admin: 02/08/18 14:30 Dose: 4 mg Non-Formulary Medication (Terazosin Hcl [Terazosin Hcl]) 5 mg PO DAILY [facility] Last Admin: 02/08/18 09:26 Dose: Not Given Oxycodone/Acetaminophen (Percocet 5/325 Mg Tab) 1 tab PO Q4 PRN PRN Reason: Pain, Mild (1-3) Stop: 02/10/18 14:00 Last Admin: 02/08/18 09:22 Dose: 1 tab Oxycodone/Acetaminophen (Percocet 10/325 Mg Tab) 1 tab PO Q4H PRN PRN Reason: Pain, moderate (4-7) Pregabalin (Lyrica) 150 mg PO BID [facility] Last Admin: 02/08/18 17:11 Dose: 150 mg - Labs Labs: 02/08/18 05:30 02/08/18 05:30 PT 12.0 SECONDS (9.4-12.5) 02/06/18 07:40 INR 1.04 02/06/18 07:40 APTT 27.2 Seconds (25.1-36.5) 02/06/18 07:40 Assessment and Plan - Assessment and Plan (Free Text) Plan: Pt seen and examined. This is a late entry. I have reviewed the note of the medical registrar and agree with it. I have reviewed the meds and labs of the pt. I have discussed the assessment and plan with the resident. Pt with Chalo garcia. She had surgery and will need PT and OT at [facility]. HTN is controlled with Losartan. Lyrica for neuropathy. Pt is on Inslulin coverage for DM-2. Her pain is controlled.
[2018-02-07] MEDS ORDERED: Glycopyrrolate 0.2 mg/ml (2ml vial) ONE (13:16)
[2018-02-07] MEDS ORDERED: HYDROmorphone 0.5 mg/0.5 ml ISec IVP PRN (13:44)
[2018-02-07] MEDS ORDERED: Lactated Ringer's 1,000 ML IV SCH (13:45)
--- NOTE | 2018-02-07 13:51 | PCM.ANESB1 ---
Interscalene Block - Brachial Plexus Date of Procedure: 02/07/18 Anesthesiologist: Hayden Pemberton Pre-Procedure Diagnosis: orif right humerus Post-Procedure Diagnosis: same Procedure Performed: Interscalene Block of Brachial Plexus Right - Procedure Interscalene Block of Brachial Plexus: This procedure was explained to the patient that it is for post-operative pain management. Consent was obtained after a thorough discussion with the patient regarding the benefits and possible complications of local anesthetic block of the Brachial Plexus at the Interscalene area. The patient was brought to the Operating Room and standard monitors were applied. Time out was held with the circulating nurse to confirm the correct surgery and appropriate block. After applying Oxygen by nasal cannula and administering IV Sedation, the patient's head was gently rotated away from the operative shoulder and the anterior scalene groove was carefully palpated. The ultrasound transducer was then applied to the skin in the transverse plane and the brachial plexus was visualized lateral to the carotid artery and in between the anterior and middle scalene muscles. After identification,the anterior lateral portion of the neck was prepped with Betadine solution three times and Lidocaine 1% was injected subcutaneously for topical analgesia. At this point, a # 22 gauge Stimuplex 2 inches insulated needle was inserted into the interscalene groove and directed in a caudal and midline direction. The needle was inserted lateral to the ultrasound transducer in-plane towards the brachial plexus in a [id number] direction. Needle advancement was performed carefully under direct ultrasound visualization. Nerve stimulator was used and twitched of the affected extremity including the hand brachialis muscles, biceps and the deltoid was obtained at a current of 0.3 MA. After repeated negative aspiration,_5____cc of_0.5%____,_bupiv were injected and this was followed with _25____cc of _0.5____% __bupiv . Under ultrasound guidance the local anesthetics were observed surrounding the roots of the brachial plexus. The needle was removed intact and sterile dressing was applied. The patient had stable vital signs, was conscious and in no apparent distress. The patient tolerated the interscalene block of the bracheal plexus well with stable vital signs and was prepared for subsequent surgery.
--- NOTE | 2018-02-07 13:57 | PCM.SURG1 ---
Surgeon's Initial Post Op Note - Surgeon's Notes Surgeon: Jhonny Baldwin MD [employer] Sales Representative: Mickey CRUZ, Hayden CRUZ Type of Anesthesia: General Endo Anesthesia Administered By: Dr. CARPENTER Pre-Operative Diagnosis: Right proximal humerus fx Operative Findings: same Post-Operative Diagnosis: same Operation Performed: ORIF right proximal humerus Specimen/Specimens Removed: none Estimated Blood Loss: EBL {In ML}: 100 Blood Products Given: N/A Drains Used: No Drains Date of Surgery/Procedure: 02/07/18 Time of Surgery/Procedure: 13:56 ([employer] SPECIALIST reviewed. monthly rx for lyrica only. Patient instructed on use/interactions/disposal of CDS.)
--- NOTE | 2018-02-07 14:08 | RAD ---
Date of service: 02/07/2018 PROCEDURE: Fluoroscopy up to 1 hr HISTORY: O.R.I.F. RT. HUMERUS FX. COMPARISON: TECHNIQUE: 100 sec of fluoro time. 9.61 mGy cumulative dose. Five images were submitted FINDINGS: There is a plate and multiple screws in the proximal humerus IMPRESSION: As above
--- NOTE | 2018-02-07 15:12 | RAD ---
Date of service: 02/07/2018 PROCEDURE: Radiographs of the Right Shoulder HISTORY: pt in pacu s/p ORIF right proximal humerus COMPARISON: 02/03/2018 FINDINGS: BONES: Status post internal fixation of the right humeral fracture. There is anatomic alignment JOINTS: Normal. Glenohumeral and acromioclavicular joints preserved. No osteoarthritis. SOFT TISSUES: Normal. OTHER FINDINGS: None. IMPRESSION: Status post internal fixation of the right humeral fracture. There is anatomic alignment
[2018-02-07] MEDS: Insulin Human NPH 1 UNITS/0.01 ML SC SCH ×2 (15:50→17:41)
[2018-02-07] MEDS: Insulin Reg-HIGH-Coverage SC SCH ×2 (15:51→22:00)
[2018-02-07] MEDS: TERAZOSIN HCL 5 MG PO SCH (15:52)
[2018-02-07] MEDS: Cholecalciferol 1,000 INTLU TAB PO SCH ×2 (15:53→17:38)
[2018-02-07] MEDS: Oxycodone/Acetaminophen 5/325 mg Tab PO PRN (15:53)
[2018-02-07] MEDS: ceFAZolin IV 2 gm in Dextrose 2 GM/50 ML BAG IVPB SCH (17:39)
[2018-02-07] MEDS: Morphine 2 mg/ml ISec IVP PRN (17:43)
[2018-02-07] MEDS ORDERED: Pantoprazole 40 mg EC Tab PO ONE (22:40)
--- NOTE | 2018-02-08 00:06 | OP ---
PROCEDURE DATE: 02/07/2018 PREOPERATIVE DIAGNOSIS: Right proximal humerus fracture. POSTOPERATIVE DIAGNOSIS: Right proximal humerus fracture. PROCEDURE: Open reduction and internal fixation of right proximal humerus fractures. SURGEON: MD Dr. Denny Li was assisted by Domonique Tapia, physician assistant banquet manager, as well as Devon De Dios physician assistant banquet manager. Both physician assistants were scrubbed and present throughout the entire case and assisted in patient positioning, retraction, and wound closure. ANESTHESIA: General. COMPLICATIONS: None. ESTIMATED BLOOD LOSS: 100 mL. IMPLANT: Synthes proximal humeral locking plate. INDICATION FOR PROCEDURE: This is a 67-year-old female who presented status post fall with right upper extremity pain. Clinical examination was consistent with pain with passive and active range of motion of the right shoulder crepitus. Radiographic examination was consistent with displaced right proximal humerus fracture. Recommendations were for open reduction and internal fixation of the fracture once the patient was medically optimized. The risks, benefits, and alternative of the procedure were discussed with the patient including nonunion, malunion, infection, and informed consent was obtained. OPERATIVE PROCEDURE: After surgical site was signed and verified in the perioperative holding area, the patient was taken to the operating room and placed supine on the operating room table. After administration of general anesthesia, the patient received 2 g of Ancef IV. The patient was positioned in the beach chair with head of the bed approximately 30 degrees. Venodyne boots were placed on bilateral lower extremities. Care was taken to make sure that her head and lower extremities and left upper extremities were well padded and protected, and the right upper extremity was then prepped and draped in usual sterile fashion. The bony landmarks were identified about the right proximal humerus and approximately 12 cm oblique incision was made over the deltopectoral groove. Soft tissues were taken down to the cephalic vein which was identified and gently retracted laterally. The deltopectoral groove was developed down to the fracture site. The long head of the biceps appeared to be intact. At this point, fracture hematoma was evacuated and the wound was irrigated. Next, an open reduction was performed. Reduction was provisionally held using K-wires. Reduction was checked using the image intensifier on both the AP and lateral and axillary planes. Satisfied with the reduction, a Synthes proximal humeral plate was placed on the lateral aspect of the humerus and provisionally fixed using K-wires. Position of the plate was confirmed using C-arm Finally, the fracture was fixed definitively with 1 cortical and 2 Nikolas screws in the shaft and 5 locking screws in the proximal fragment. Once this was done, all the K-wires removed, and x-rays were taken, and the shoulders taken through a range of motion showed good reduction and good position of all the hardware. At this point, the wound was copiously irrigated with antibiotic saline solution and closed in a layered fashion. Sterile dressing was applied and the right upper extremity was placed in a shoulder immobilizer. The patient was awakened from the procedure and taken to the recovery room in stable condition. Yannick Baldwin MD
[2018-02-08] MEDS: ceFAZolin IV 2 gm in Dextrose 2 GM/50 ML BAG IVPB SCH (01:14)
[2018-02-08] MEDS: Oxycodone/Acetaminophen 5/325 mg Tab PO PRN ×2 (01:15→09:22)
[2018-02-08] MEDS ORDERED: Pantoprazole 40 mg EC Tab PO ONE (06:20)
[2018-02-08 07:12] LABS: CALCIUM 8.4 mg/dL (8.4-10.5)
[2018-02-08 07:28] LABS: HEMOGLOBIN 9.4 g/dL (12.0-16.0); MEAN CELL VOLUME 88.1 fl (80.0-105.0); MEAN CORPUSCULAR HEMOGLOBIN 28.6 pg (25.0-35.0); RBC 3.29 10^6/uL (3.5-6.1); WHITE BLOOD COUNT 9.5 10^3/uL (4.5-11.0)
[2018-02-08 07:29] LABS: GRAN % 68.9 % (50.0-68.0); MEAN CORPUSCULAR HGB CONC 32.4 g/dl (31.0-37.0); MEAN PLATELET VOLUME 10.8 fl (7.0-11.0); RED CELL DISTRIBUTION WIDTH 15.1 % (11.5-14.5)
[2018-02-08 07:30] LABS: BASO # 0.02 K/mm3 (0.0-2.0); BASO % 0.2 % (0.0-3.0); EOS % 0.3 % (1.5-5.0); GRAN # 6.53 (1.4-6.5); LYMPH # 2.1 (1.2-3.4); MONO # 0.8 (0.1-0.6); MONO % 8.6 % (1.0-6.0)
[2018-02-08] MEDS ORDERED: Oxycodone/Acetaminophen 10/325 mg Tab PO PRN (08:51)
[2018-02-08] MEDS ORDERED: Morphine 4 mg/ml ISec IVP PRN (08:51)
[2018-02-08] MEDS: Insulin Reg-HIGH-Coverage SC SCH ×5 (09:20→21:54)
[2018-02-08] MEDS: Cholecalciferol 1,000 INTLU TAB PO SCH (09:21)
[2018-02-08] MEDS: Insulin Human NPH 1 UNITS/0.01 ML SC SCH ×2 (09:25→18:00)
[2018-02-08] MEDS: TERAZOSIN HCL 5 MG PO SCH (09:26)
--- NOTE | 2018-02-08 10:14 | CP.PCM.DIS ---
Provider - Provider Date of Admission: 02/04/18 01:43 Attending physician: Carlin Oquendo MD Primary care physician: Darío Soto MD Consults: 02/04/18 03:28 Social Work Referral Routine Comment: eval Physician Instructions: Reason For Exam: discharge planning 02/04/18 07:59 Physician Consult Routine Comment: Consulting Provider: Yannick Baldwin Consulting Physician: Yannick Baldwin Reason for Consult: right shoulder fracture 02/04/18 08:10 Consult [Physician Consult] Routine Comment: Consulting Provider: Kendall Obando Consulting Physician: Kendall Obando Reason for Consult: PreOp Hospital Course - Lab Results Lab Results: Most Recent Lab Values WBC 9.5 10^3/uL (4.5-11.0) D 02/08/18 05:30 RBC 3.29 10^6/uL (3.5-6.1) L 02/08/18 05:30 Hgb 9.4 g/dL (12.0-16.0) L 02/08/18 05:30 Hct 29.0 % (36.0-48.0) L 02/08/18 05:30 MCV 88.1 fl (80.0-105.0) 02/08/18 05:30 MCH 28.6 pg (25.0-35.0) 02/08/18 05:30 MCHC 32.4 g/dl (31.0-37.0) 02/08/18 05:30 RDW 15.1 % (11.5-14.5) H 02/08/18 05:30 Plt Count 257 10^3/uL (120.0-450.0) 02/08/18 05:30 MPV 10.8 fl (7.0-11.0) 02/08/18 05:30 Gran % 68.9 % (50.0-68.0) H 02/08/18 05:30 Lymph % (Auto) 22.0 % (22.0-35.0) 02/08/18 05:30 [place] % (Auto) 8.6 % (1.0-6.0) H 02/08/18 05:30 Eos % (Auto) 0.3 % (1.5-5.0) L 02/08/18 05:30 Baso % (Auto) 0.2 % (0.0-3.0) 02/08/18 05:30 Gran # 6.53 (1.4-6.5) H 02/08/18 05:30 Lymph # (Auto) 2.1 (1.2-3.4) 02/08/18 05:30 [place] # (Auto) 0.8 (0.1-0.6) H 02/08/18 05:30 Eos # (Auto) 0.0 (0.0-0.7) 02/08/18 05:30 Baso # (Auto) 0.02 K/mm3 (0.0-2.0) 02/08/18 05:30 PT 12.0 SECONDS (9.4-12.5) 02/06/18 07:40 INR 1.04 02/06/18 07:40 APTT 27.2 Seconds (25.1-36.5) 02/06/18 07:40 Sodium 138 mmol/L (132-148) 02/08/18 05:30 Potassium 4.0 mmol/L (3.6-5.0) 02/08/18 05:30 Chloride 103 mmol/L (98-107) 02/08/18 05:30 Carbon Dioxide 26 mmol/L (21-33) 02/08/18 05:30 Anion Gap 12 (10-20) 02/08/18 05:30 BUN 29 mg/dL (7-21) H 02/08/18 05:30 Creatinine 1.2 mg/dl (0.7-1.2) 02/08/18 05:30 Est GFR ( Amer) 54 02/08/18 05:30 Est GFR (Non-Af Amer) 45 02/08/18 05:30 POC Glucose (mg/dL) 198 mg/dL (65-110) H 02/06/18 21:22 Random Glucose 188 mg/dL (70-110) H 02/08/18 05:30 Calcium 8.4 mg/dL (8.4-10.5) 02/08/18 05:30 Phosphorus 3.0 mg/dL (2.5-4.5) 02/05/18 07:30 Magnesium 1.8 mg/dL (1.7-2.2) 02/05/18 07:30 Iron 40 ug/dL (45-180) L 02/04/18 07:30 TIBC 272 ug/dL (265-497) 02/04/18 07:30 % Saturation 15 % (20-55) L 02/04/18 07:30 Ferritin 18.8 ng/mL 02/04/18 07:30 Total Bilirubin 0.4 mg/dL (0.2-1.3) 02/05/18 07:30 AST 59 U/L (14-36) H D 02/05/18 07:30 ALT 24 U/L (7-56) 02/05/18 07:30 Alkaline Phosphatase 86 U/L (38-126) 02/05/18 07:30 Total Protein 7.2 g/dL (5.8-8.3) 02/05/18 07:30 Albumin 3.6 g/dL (3.0-4.8) 02/05/18 07:30 Globulin 3.6 gm/dL 02/05/18 07:30 Albumin/Globulin Ratio 1.0 (1.1-1.8) L 02/05/18 07:30 Blood Type O POSITIVE 02/06/18 08:50 Blood Type Confirm O POSITIVE 02/06/18 09:09 Antibody Screen Positive 02/06/18 08:50 Antibody Identification Anti Fya 02/06/18 08:50 Antigen Identification Fya Antigen - NEGATIVE 02/06/18 08:50 Crossmatch See Detail 02/06/18 08:50 BBK History Checked No verified bt 02/06/18 08:50 Discharge Exam - Head Exam Head Exam: ATRAUMATIC, NORMAL INSPECTION, NORMOCEPHALIC Discharge Plan - Discharge Medications Prescriptions: Cephalexin [Keflex] 500 mg PO Q6H #28 capsule oxyCODONE/Acetaminophen [Percocet 5/325 mg Tab] 1 ea PO Q4H PRN #30 tab PRN Reason: Pain, Moderate (4-7) - Follow Up Plan Condition: STABLE Disposition: HOME/ ROUTINE Referrals: Darío Soto MD [Primary Care Provider] -
--- NOTE | 2018-02-08 19:12 | CP.PCM.PN ---
<Sheldon Cr - Last Filed: 02/08/18 19:09> Subjective - Date & Time of Evaluation Date of Evaluation: 02/08/18 Time of Evaluation: 07:50 - Subjective Subjective: Progress Note for Dr. Oquendo Service Patient seen and examined at bedside. No acute events overnight. Still with some pain, pain regimen increased. PT recs DAY. Objective - Vital Signs/Intake and Output Vital Signs (last 24 hours): Temp Pulse Resp BP Pulse Ox 99.8 F H 92 H 20 112/63 95 02/08/18 07:30 02/08/18 07:30 02/08/18 07:30 02/08/18 07:30 02/08/18 07:30 - Medications Medications: Current Medications Acetaminophen (Tylenol 325mg Tab) 650 mg PO Q4H PRN PRN Reason: Pain, Mild (1-3) Aspirin (Ecotrin) 81 mg PO DAILY [facility] Last Admin: 02/08/18 09:21 Dose: 81 mg Cholecalciferol (Vitamin D) 1,000 intlu PO DAILY [facility] Last Admin: 02/08/18 09:21 Dose: 1,000 intlu Docusate Sodium (Colace) 100 mg PO BID [facility] Last Admin: 02/08/18 17:11 Dose: 100 mg Hydrochlorothiazide (Hydrodiuril) 25 mg PO DAILY [facility] Last Admin: 02/08/18 09:19 Dose: 25 mg Insulin Human NPH (Humulin N) 22 units SC QPM [facility] Last Admin: 02/07/18 17:41 Dose: Not Given Insulin Human NPH (Humulin N) 40 units SC ACB [facility] Last Admin: 02/08/18 09:25 Dose: 40 units Insulin Human Regular (Humulin R High) 0 units SC ACHS [facility]; Protocol Last Admin: 02/08/18 16:39 Dose: 2 units Losartan Potassium (Cozaar) 100 mg PO DAILY [facility] Last Admin: 02/08/18 09:19 Dose: 100 mg Morphine Sulfate (Morphine) 4 mg IVP Q4H PRN PRN Reason: Pain, severe (8-10) Last Admin: 02/08/18 14:30 Dose: 4 mg Non-Formulary Medication (Terazosin Hcl [Terazosin Hcl]) 5 mg PO DAILY [facility] Last Admin: 02/08/18 09:26 Dose: Not Given Oxycodone/Acetaminophen (Percocet 5/325 Mg Tab) 1 tab PO Q4 PRN PRN Reason: Pain, Mild (1-3) Stop: 02/10/18 14:00 Last Admin: 02/08/18 09:22 Dose: 1 tab Oxycodone/Acetaminophen (Percocet 10/325 Mg Tab) 1 tab PO Q4H PRN PRN Reason: Pain, moderate (4-7) Pregabalin (Lyrica) 150 mg PO BID [facility] Last Admin: 02/08/18 17:11 Dose: 150 mg - Labs Labs: 02/08/18 05:30 02/08/18 05:30 PT 12.0 SECONDS (9.4-12.5) 02/06/18 07:40 INR 1.04 02/06/18 07:40 APTT 27.2 Seconds (25.1-36.5) 02/06/18 07:40 - Additional Findings Additional findings: - Constitutional Appears: Non-toxic, No Acute Distress - Head Exam Head Exam: ATRAUMATIC, NORMAL INSPECTION, NORMOCEPHALIC - Eye Exam Eye Exam: EOMI, Normal appearance. absent: Conjunctival injection, Scleral icterus Pupil Exam: absent: Irregular, Unequal - ENT Exam ENT Exam: Mucous Membranes Moist - Neck Exam Neck exam: Positive for: Full Rom, Normal Inspection - Respiratory Exam Respiratory Exam: Clear to Auscultation Bilateral, NORMAL BREATHING PATTERN. absent: Accessory Muscle Use, Chest Wall Tenderness, Decreased Breath Sounds, Rales, Rhonchi, Wheezes - Cardiovascular Exam Cardiovascular Exam: REGULAR RHYTHM, RRR, +S1, +S2. absent: Bradycardia, Tachycardia, Irregular Rhythm, JVD, +S4 - GI/Abdominal Exam GI & Abdominal Exam: Normal Bowel Sounds, Soft. absent: Diminished Bowel Sounds, Distended, Firm, Hyperactive Bowel Sounds, Hypoactive Bowel Sounds, Rigid, Tenderness - Extremities Exam Upper extremity: Left UE: unremarkable, full active and passive ROM, no deformity Right UE: post-op, bandaged, immobilized Lower extremity: Bilateral LE intact, full active/passive ROM, no pedal edema or tenderness, no swelling appreciated - Neurological Exam awake and alert, moving all extremities (except RUE) spontaneously, following all commands appropriately - Psychiatric Exam Psychiatric exam: Normal Affect, Normal Mood - Skin Skin Exam: Dry, Intact, Normal Color, Warm Assessment and Plan - Assessment and Plan (Free Text) Assessment: This is a 67 yo F with PMH of HTN and DMII with neuropathy who presents s/p mechanical fall onto right arm, with intractable pain, found to have humeral fracture on imaging. Post-op day 1. PT recs DAY for reconditioning. Plan: 1) Mechanical fall onto RUE with humeral fx -POD #1 for R humeral fx repair -PT evaluated, high risk for falls, so recs DAY 2) Chronic issues: -HTN: continue home losartan -DM: continue home insulin regimen -Neuropathy: continue lyrica Dispo: post-op for humeral fracture repair, pending placement for DAY Ppx: SCDs for DVT Reviewed and discussed with attending, Dr. Oquendo <Carlin Oquenod S - Last Filed: 02/09/18 19:29> Objective - Vital Signs/Intake and Output Vital Signs (last 24 hours): Temp Pulse Resp BP Pulse Ox 98.9 F 95 H 20 107/64 98 02/09/18 07:30 02/09/18 07:30 02/09/18 07:30 02/09/18 07:30 02/09/18 07:30 - Medications Medications: Current Medications Acetaminophen (Tylenol 325mg Tab) 650 mg PO Q4H PRN PRN Reason: Pain, Mild (1-3) Aspirin (Ecotrin) 81 mg PO DAILY [facility] Last Admin: 02/09/18 09:55 Dose: 81 mg Cholecalciferol (Vitamin D) 1,000 intlu PO DAILY [facility] Last Admin: 02/09/18 09:55 Dose: 1,000 intlu Docusate Sodium (Colace) 100 mg PO BID [facility] Last Admin: 02/09/18 17:13 Dose: 100 mg Hydrochlorothiazide (Hydrodiuril) 25 mg PO DAILY [facility] Last Admin: 02/09/18 09:55 Dose: 25 mg Insulin Human NPH (Humulin N) 22 units SC QPM [facility] Last Admin: 02/09/18 17:17 Dose: 22 units Insulin Human NPH (Humulin N) 40 units SC ACB [facility] Last Admin: 02/09/18 09:54 Dose: 40 units Insulin Human Regular (Humulin R High) 0 units SC ACHS [facility]; Protocol Last Admin: 02/09/18 17:14 Dose: 2 units Losartan Potassium (Cozaar) 100 mg PO DAILY [facility] Last Admin: 02/09/18 09:55 Dose: 100 mg Morphine Sulfate (Morphine) 4 mg IVP Q4H PRN PRN Reason: Pain, severe (8-10) Last Admin: 02/08/18 14:30 Dose: 4 mg Non-Formulary Medication (Terazosin Hcl [Terazosin Hcl]) 5 mg PO DAILY [facility] Last Admin: 02/09/18 09:56 Dose: Not Given Oxycodone/Acetaminophen (Percocet 5/325 Mg Tab) 1 tab PO Q4 PRN PRN Reason: Pain, Mild (1-3) Stop: 02/10/18 14:00 Last Admin: 02/08/18 09:22 Dose: 1 tab Oxycodone/Acetaminophen (Percocet 10/325 Mg Tab) 1 tab PO Q4H PRN PRN Reason: Pain, moderate (4-7) Pregabalin (Lyrica) 150 mg PO BID [facility] Last Admin: 02/09/18 17:13 Dose: 150 mg - Labs Labs: 02/08/18 05:30 02/08/18 05:30 PT 12.0 SECONDS (9.4-12.5) 02/06/18 07:40 INR 1.04 02/06/18 07:40 APTT 27.2 Seconds (25.1-36.5) 02/06/18 07:40 Assessment and Plan - Assessment and Plan (Free Text) Plan: Pt seen and examined. I have reviewed the note of the medical assembly and agree with it. I have reviewed the meds and labs of the pt. I have discussed the assessment and plan with the resident . Pt had a fall. She had surgery for her R humeral fx. She is going to need PT. Her BP is controlled with Losartan.
[2018-02-08] MEDS ORDERED: Alum-Mag Hydrox-Simethicone Susp (30 mL) PO ONE (21:39)
--- NOTE | 2018-02-09 08:15 | CP.PCM.PN ---
<Sheldon Cr - Last Filed: 02/09/18 17:55> Subjective - Date & Time of Evaluation Date of Evaluation: 02/09/18 Time of Evaluation: 07:00 - Subjective Subjective: Progress Note for Dr. Oquendo Service Patient seen and examined at bedside. No acute events overnight. Pain control improved, last use of IV morphine through breakthrough pain was yesterday afternoon. Patient excited to go to rehab. Objective - Vital Signs/Intake and Output Vital Signs (last 24 hours): Temp Pulse Resp BP Pulse Ox 98.1 F 105 H 18 106/67 95 02/08/18 22:55 02/08/18 22:55 02/08/18 22:55 02/08/18 22:55 02/08/18 22:55 Intake and Output: 02/09/18 02/09/18 06:59 18:59 Intake Total 540 Balance 540 - Medications Medications: Current Medications Acetaminophen (Tylenol 325mg Tab) 650 mg PO Q4H PRN PRN Reason: Pain, Mild (1-3) Aspirin (Ecotrin) 81 mg PO DAILY [facility] Last Admin: 02/08/18 09:21 Dose: 81 mg Cholecalciferol (Vitamin D) 1,000 intlu PO DAILY [facility] Last Admin: 02/08/18 09:21 Dose: 1,000 intlu Docusate Sodium (Colace) 100 mg PO BID [facility] Last Admin: 02/08/18 17:11 Dose: 100 mg Hydrochlorothiazide (Hydrodiuril) 25 mg PO DAILY [facility] Last Admin: 02/08/18 09:19 Dose: 25 mg Insulin Human NPH (Humulin N) 22 units SC QPM [facility] Last Admin: 02/08/18 18:00 Dose: 22 units Insulin Human NPH (Humulin N) 40 units SC ACB [facility] Last Admin: 02/08/18 09:25 Dose: 40 units Insulin Human Regular (Humulin R High) 0 units SC ACHS [facility]; Protocol Last Admin: 02/08/18 21:54 Dose: Not Given Losartan Potassium (Cozaar) 100 mg PO DAILY [facility] Last Admin: 02/08/18 09:19 Dose: 100 mg Morphine Sulfate (Morphine) 4 mg IVP Q4H PRN PRN Reason: Pain, severe (8-10) Last Admin: 02/08/18 14:30 Dose: 4 mg Non-Formulary Medication (Terazosin Hcl [Terazosin Hcl]) 5 mg PO DAILY [facility] Last Admin: 02/08/18 09:26 Dose: Not Given Oxycodone/Acetaminophen (Percocet 5/325 Mg Tab) 1 tab PO Q4 PRN PRN Reason: Pain, Mild (1-3) Stop: 02/10/18 14:00 Last Admin: 02/08/18 09:22 Dose: 1 tab Oxycodone/Acetaminophen (Percocet 10/325 Mg Tab) 1 tab PO Q4H PRN PRN Reason: Pain, moderate (4-7) Pregabalin (Lyrica) 150 mg PO BID [facility] Last Admin: 02/08/18 17:11 Dose: 150 mg - Labs Labs: 02/08/18 05:30 02/08/18 05:30 PT 12.0 SECONDS (9.4-12.5) 02/06/18 07:40 INR 1.04 02/06/18 07:40 APTT 27.2 Seconds (25.1-36.5) 02/06/18 07:40 - Additional Findings Additional findings: - Constitutional Appears: Non-toxic, No Acute Distress - Head Exam Head Exam: ATRAUMATIC, NORMAL INSPECTION, NORMOCEPHALIC - Eye Exam Eye Exam: EOMI, Normal appearance. absent: Conjunctival injection, Scleral icterus Pupil Exam: absent: Irregular, Unequal - ENT Exam ENT Exam: Mucous Membranes Moist - Neck Exam Neck exam: Positive for: Full Rom, Normal Inspection - Respiratory Exam Respiratory Exam: Clear to Auscultation Bilateral, NORMAL BREATHING PATTERN. absent: Accessory Muscle Use, Chest Wall Tenderness, Decreased Breath Sounds, Rales, Rhonchi, Wheezes - Cardiovascular Exam Cardiovascular Exam: REGULAR RHYTHM, RRR, +S1, +S2. absent: Bradycardia, Tachycardia, Irregular Rhythm, JVD, +S4 - GI/Abdominal Exam GI & Abdominal Exam: Normal Bowel Sounds, Soft. absent: Diminished Bowel Sounds, Distended, Firm, Hyperactive Bowel Sounds, Hypoactive Bowel Sounds, Rigid, Tenderness - Extremities Exam Upper extremity: Left UE: unremarkable, full active and passive ROM, no deformity Right UE: bandaged/immobilized Lower extremity: Bilateral LE intact, full active/passive ROM, no pedal edema or tenderness, no swelling appreciated - Neurological Exam awake and alert, moving all extremities (except RUE) spontaneously, following all commands appropriately - Psychiatric Exam Psychiatric exam: Normal Affect, Normal Mood - Skin Skin Exam: Dry, Intact, Normal Color, Warm Assessment and Plan - Assessment and Plan (Free Text) Assessment: This is a 67 yo F with PMH of HTN and DMII with neuropathy who presents s/p mechanical fall onto right arm, with intractable pain, found to have humeral fracture on imaging. Post-op day 2. PT recs DAY for reconditioning. Plan: 1) Mechanical fall onto RUE with humeral fx -POD #2 for R humeral fx repair -PT evaluated, high risk for falls, so recs DAY 2) Chronic issues: -HTN: continue home losartan -DM: continue home insulin regimen -Neuropathy: continue lyrica Dispo: post-op for humeral fracture repair, pending placement for DAY Ppx: SCDs for DVT Reviewed and discussed with attending, Dr. Oquendo <Carlin Oquendo S - Last Filed: 02/09/18 19:23> Objective - Vital Signs/Intake and Output Vital Signs (last 24 hours): Temp Pulse Resp BP Pulse Ox 98.9 F 95 H 20 107/64 98 02/09/18 07:30 02/09/18 07:30 02/09/18 07:30 02/09/18 07:30 02/09/18 07:30 - Medications Medications: Current Medications Acetaminophen (Tylenol 325mg Tab) 650 mg PO Q4H PRN PRN Reason: Pain, Mild (1-3) Aspirin (Ecotrin) 81 mg PO DAILY [facility] Last Admin: 02/09/18 09:55 Dose: 81 mg Cholecalciferol (Vitamin D) 1,000 intlu PO DAILY [facility] Last Admin: 02/09/18 09:55 Dose: 1,000 intlu Docusate Sodium (Colace) 100 mg PO BID [facility] Last Admin: 02/09/18 17:13 Dose: 100 mg Hydrochlorothiazide (Hydrodiuril) 25 mg PO DAILY [facility] Last Admin: 02/09/18 09:55 Dose: 25 mg Insulin Human NPH (Humulin N) 22 units SC QPM [facility] Last Admin: 02/09/18 17:17 Dose: 22 units Insulin Human NPH (Humulin N) 40 units SC ACB [facility] Last Admin: 02/09/18 09:54 Dose: 40 units Insulin Human Regular (Humulin R High) 0 units SC ACHS [facility]; Protocol Last Admin: 02/09/18 17:14 Dose: 2 units Losartan Potassium (Cozaar) 100 mg PO DAILY [facility] Last Admin: 02/09/18 09:55 Dose: 100 mg Morphine Sulfate (Morphine) 4 mg IVP Q4H PRN PRN Reason: Pain, severe (8-10) Last Admin: 02/08/18 14:30 Dose: 4 mg Non-Formulary Medication (Terazosin Hcl [Terazosin Hcl]) 5 mg PO DAILY [facility] Last Admin: 02/09/18 09:56 Dose: Not Given Oxycodone/Acetaminophen (Percocet 5/325 Mg Tab) 1 tab PO Q4 PRN PRN Reason: Pain, Mild (1-3) Stop: 02/10/18 14:00 Last Admin: 02/08/18 09:22 Dose: 1 tab Oxycodone/Acetaminophen (Percocet 10/325 Mg Tab) 1 tab PO Q4H PRN PRN Reason: Pain, moderate (4-7) Pregabalin (Lyrica) 150 mg PO BID [facility] Last Admin: 02/09/18 17:13 Dose: 150 mg - Labs Labs: 02/08/18 05:30 02/08/18 05:30 PT 12.0 SECONDS (9.4-12.5) 02/06/18 07:40 INR 1.04 02/06/18 07:40 APTT 27.2 Seconds (25.1-36.5) 02/06/18 07:40 Assessment and Plan - Assessment and Plan (Free Text) Plan: Pt seen and examined. I have reviewed the note of the manager medical and agree with it. I have reviewed the meds and labs of the pt. I have discussed the assessment and plan with the resident. Pt with R humeral fracture. She had surgery and fells better. I increased her pain meds yesterday and this has improved her pain. She will need DAY, probably [facility]. Losartan is controllingher BP. She is on Lyrical for neuropathy.
[2018-02-09 08:27] VITALS: RESP 20
[2018-02-09] MEDS: Insulin Reg-HIGH-Coverage SC SCH ×3 (08:43→23:20)
[2018-02-09] MEDS: Insulin Human NPH 1 UNITS/0.01 ML SC SCH ×2 (09:54→17:17)
[2018-02-09] MEDS: Cholecalciferol 1,000 INTLU TAB PO SCH (09:55)
[2018-02-09] MEDS: TERAZOSIN HCL 5 MG PO SCH (09:56)
[2018-02-09] MEDS ORDERED: Alum-Mag Hydrox-Simethicone Susp (30 mL) PO ONE (22:25)
--- NOTE | 2018-02-10 07:54 | CP.PCM.PN ---
Subjective - Date & Time of Evaluation Date of Evaluation: 02/10/18 Time of Evaluation: 07:51 - Subjective Subjective: Patient s/p ORIF right proximal humerus fracture. Denies any significant pain. Waiting authorization for DAY VSS pending labs R shoulder: Upper extremity sling on. dressings changed. Incision clean,dry and intact. The sutures are intact. There is no erythema or drainage. No signs of cellulits or infection. New dressings applied. +AROM wrist and fingers. Sensation intact to light touch. Grossly, NVI distally s/p ORIF R proximal humerus fx Cont abx Keflex x 5 days Plan to DAY follow up with in office this for a wound check Discussed above with Dr. Baldwin, agrees. Objective - Vital Signs/Intake and Output Vital Signs (last 24 hours): Temp Pulse Resp BP Pulse Ox 99.4 F 80 20 117/62 100 02/09/18 23:30 02/09/18 23:30 02/09/18 23:30 02/09/18 23:30 02/09/18 23:30 - Medications Medications: Current Medications Acetaminophen (Tylenol 325mg Tab) 650 mg PO Q4H PRN PRN Reason: Pain, Mild (1-3) Last Admin: 02/09/18 22:32 Dose: 650 mg Aspirin (Ecotrin) 81 mg PO DAILY [facility] Last Admin: 02/09/18 09:55 Dose: 81 mg Cephalexin Monohydrate (Keflex) 500 mg PO Q6 [facility]; Protocol Stop: 02/15/18 12:01 Cholecalciferol (Vitamin D) 1,000 intlu PO DAILY [facility] Last Admin: 02/09/18 09:55 Dose: 1,000 intlu Docusate Sodium (Colace) 100 mg PO BID [facility] Last Admin: 02/09/18 17:13 Dose: 100 mg Hydrochlorothiazide (Hydrodiuril) 25 mg PO DAILY [facility] Last Admin: 02/09/18 09:55 Dose: 25 mg Insulin Human NPH (Humulin N) 22 units SC QPM [facility] Last Admin: 02/09/18 17:17 Dose: 22 units Insulin Human NPH (Humulin N) 40 units SC ACB [facility] Last Admin: 02/09/18 09:54 Dose: 40 units Insulin Human Regular (Humulin R High) 0 units SC ACHS [facility]; Protocol Last Admin: 02/09/18 23:20 Dose: Not Given Losartan Potassium (Cozaar) 100 mg PO DAILY [facility] Last Admin: 02/09/18 09:55 Dose: 100 mg Morphine Sulfate (Morphine) 4 mg IVP Q4H PRN PRN Reason: Pain, severe (8-10) Last Admin: 02/08/18 14:30 Dose: 4 mg Non-Formulary Medication (Terazosin Hcl [Terazosin Hcl]) 5 mg PO DAILY [facility] Last Admin: 02/09/18 09:56 Dose: Not Given Oxycodone/Acetaminophen (Percocet 5/325 Mg Tab) 1 tab PO Q4 PRN PRN Reason: Pain, Mild (1-3) Stop: 02/10/18 14:00 Last Admin: 02/08/18 09:22 Dose: 1 tab Oxycodone/Acetaminophen (Percocet 10/325 Mg Tab) 1 tab PO Q4H PRN PRN Reason: Pain, moderate (4-7) Pregabalin (Lyrica) 150 mg PO BID [facility] Last Admin: 02/09/18 17:13 Dose: 150 mg - Labs Labs: 02/08/18 05:30 02/08/18 05:30 PT 12.0 SECONDS (9.4-12.5) 02/06/18 07:40 INR 1.04 02/06/18 07:40 APTT 27.2 Seconds (25.1-36.5) 02/06/18 07:40
[2018-02-10] MEDS: Insulin Human NPH 1 UNITS/0.01 ML SC SCH ×3 (08:00→18:01)
[2018-02-10] MEDS: Insulin Reg-HIGH-Coverage SC SCH ×3 (08:08→16:59)
[2018-02-10 08:15] LABS: BASO # 0.02 K/mm3 (0.0-2.0); BASO % 0.3 % (0.0-3.0); EOS # 0.3 (0.0-0.7); EOS % 3.7 % (1.5-5.0); GRAN # 4.22 (1.4-6.5); GRAN % 61.9 % (50.0-68.0); HEMOGLOBIN 8.2 g/dL (12.0-16.0); LYMPH # 1.8 (1.2-3.4); LYMPH % 26.6 % (22.0-35.0); MEAN CELL VOLUME 85.5 fl (80.0-105.0); MEAN CORPUSCULAR HEMOGLOBIN 27.7 pg (25.0-35.0); MEAN CORPUSCULAR HGB CONC 32.4 g/dl (31.0-37.0); MEAN PLATELET VOLUME 9.8 fl (7.0-11.0); MONO # 0.5 (0.1-0.6); MONO % 7.5 % (1.0-6.0); RBC 2.96 10^6/uL (3.5-6.1); RED CELL DISTRIBUTION WIDTH 14.9 % (11.5-14.5); WHITE BLOOD COUNT 6.8 10^3/uL (4.5-11.0)
--- NOTE | 2018-02-10 10:23 | CP.PCM.DIS ---
<Sheldon Cr - Last Filed: 02/10/18 15:37> Provider - Provider Date of Admission: 02/04/18 01:43 Attending physician: Carlin Oquendo MD Primary care physician: Darío Soto MD Consults: 02/04/18 03:28 Social Work Referral Routine Comment: eval Physician Instructions: Reason For Exam: discharge planning 02/04/18 07:59 Physician Consult Routine Comment: Consulting Provider: Yannick Baldwin Consulting Physician: Yannick Baldwin Reason for Consult: right shoulder fracture 02/04/18 08:10 Consult [Physician Consult] Routine Comment: Consulting Provider: Kendall Obando Consulting Physician: Kendall Obando Reason for Consult: PreOp 02/08/18 19:12 Case Management Referral Routine Comment: Physician Instructions: Reason For Exam: PT recs DAY Reason for Referral: Discharge Planning Time Spent in preparation of Discharge (in minutes): 35 Diagnosis - Discharge Diagnosis (1) Gait disorder Status: Acute Priority: Medium (2) Comminuted fracture of humerus Status: Resolved Priority: High Hospital Course - Lab Results Lab Results: Most Recent Lab Values WBC 6.8 10^3/uL (4.5-11.0) D 02/10/18 08:00 RBC 2.96 10^6/uL (3.5-6.1) L 02/10/18 08:00 Hgb 8.2 g/dL (12.0-16.0) L 02/10/18 08:00 Hct 25.3 % (36.0-48.0) L 02/10/18 08:00 MCV 85.5 fl (80.0-105.0) 02/10/18 08:00 MCH 27.7 pg (25.0-35.0) 02/10/18 08:00 MCHC 32.4 g/dl (31.0-37.0) 02/10/18 08:00 RDW 14.9 % (11.5-14.5) H 02/10/18 08:00 Plt Count 228 10^3/uL (120.0-450.0) 02/10/18 08:00 MPV 9.8 fl (7.0-11.0) 02/10/18 08:00 Gran % 61.9 % (50.0-68.0) 02/10/18 08:00 Lymph % (Auto) 26.6 % (22.0-35.0) 02/10/18 08:00 Pershing % (Auto) 7.5 % (1.0-6.0) H 02/10/18 08:00 Eos % (Auto) 3.7 % (1.5-5.0) 02/10/18 08:00 Baso % (Auto) 0.3 % (0.0-3.0) 02/10/18 08:00 Gran # 4.22 (1.4-6.5) 02/10/18 08:00 Lymph # (Auto) 1.8 (1.2-3.4) 02/10/18 08:00 Pershing # (Auto) 0.5 (0.1-0.6) 02/10/18 08:00 Eos # (Auto) 0.3 (0.0-0.7) 02/10/18 08:00 Baso # (Auto) 0.02 K/mm3 (0.0-2.0) 02/10/18 08:00 PT 12.0 SECONDS (9.4-12.5) 02/06/18 07:40 INR 1.04 02/06/18 07:40 APTT 27.2 Seconds (25.1-36.5) 02/06/18 07:40 Sodium 138 mmol/L (132-148) 02/08/18 05:30 Potassium 4.0 mmol/L (3.6-5.0) 02/08/18 05:30 Chloride 103 mmol/L (98-107) 02/08/18 05:30 Carbon Dioxide 26 mmol/L (21-33) 02/08/18 05:30 Anion Gap 12 (10-20) 02/08/18 05:30 BUN 29 mg/dL (7-21) H 02/08/18 05:30 Creatinine 1.2 mg/dl (0.7-1.2) 02/08/18 05:30 Est GFR ( Amer) 54 02/08/18 05:30 Est GFR (Non-Af Amer) 45 02/08/18 05:30 POC Glucose (mg/dL) 83 mg/dL (65-110) 02/10/18 06:45 Random Glucose 188 mg/dL (70-110) H 02/08/18 05:30 Calcium 8.4 mg/dL (8.4-10.5) 02/08/18 05:30 Phosphorus 3.0 mg/dL (2.5-4.5) 02/05/18 07:30 Magnesium 1.8 mg/dL (1.7-2.2) 02/05/18 07:30 Iron 40 ug/dL (45-180) L 02/04/18 07:30 TIBC 272 ug/dL (265-497) 02/04/18 07:30 % Saturation 15 % (20-55) L 02/04/18 07:30 Ferritin 18.8 ng/mL 02/04/18 07:30 Total Bilirubin 0.4 mg/dL (0.2-1.3) 02/05/18 07:30 AST 59 U/L (14-36) H D 02/05/18 07:30 ALT 24 U/L (7-56) 02/05/18 07:30 Alkaline Phosphatase 86 U/L (38-126) 02/05/18 07:30 Total Protein 7.2 g/dL (5.8-8.3) 02/05/18 07:30 Albumin 3.6 g/dL (3.0-4.8) 02/05/18 07:30 Globulin 3.6 gm/dL 02/05/18 07:30 Albumin/Globulin Ratio 1.0 (1.1-1.8) L 02/05/18 07:30 Blood Type O POSITIVE 02/06/18 08:50 Blood Type Confirm O POSITIVE 02/06/18 09:09 Antibody Screen Positive 02/06/18 08:50 Antibody Identification Anti Fya 02/06/18 08:50 Antigen Identification Fya Antigen - NEGATIVE 02/06/18 08:50 Crossmatch See Detail 02/06/18 08:50 BBK History Checked No verified bt 02/06/18 08:50 - Hospital Course Hospital Course: This is a 67 yo F with PMH of HTN and DMII with neuropathy who presents s/p mechanical fall onto right arm, with intractable pain, found to have humeral fracture on imaging. S/p surgical repair of comminuted fracture by Ortho, POD #3. While here, she was also seen by PT, who recommended DAY due to poor gait. She is amenable, and as per case management, was accepted to . She was given a prescription for Percocet for pain control, Keflex for antibiotic prophylaxis, and was instructed to fill and take only as prescribed. She was also instructed to resume all other home medications as prescribed, to follow up with her PMD (Dr. Soto) within 1 week of discharge, and to follow up with Ortho as per their instructions. She expressed understanding and agreement with these instructions. She was then discharged to [facility]. Reviewed and discussed with attending, Dr. Oquendo. Discharge Exam - Head Exam Head Exam: ATRAUMATIC, NORMAL INSPECTION, NORMOCEPHALIC - Additional Findings Additional findings: - Constitutional Appears: Non-toxic, No Acute Distress - Head Exam Head Exam: ATRAUMATIC, NORMAL INSPECTION, NORMOCEPHALIC - Eye Exam Eye Exam: EOMI, Normal appearance. absent: Conjunctival injection, Scleral icterus Pupil Exam: absent: Irregular, Unequal - ENT Exam ENT Exam: Mucous Membranes Moist - Neck Exam Neck exam: Positive for: Full Rom, Normal Inspection - Respiratory Exam Respiratory Exam: Clear to Auscultation Bilateral, NORMAL BREATHING PATTERN. absent: Accessory Muscle Use, Chest Wall Tenderness, Decreased Breath Sounds, Rales, Rhonchi, Wheezes - Cardiovascular Exam Cardiovascular Exam: REGULAR RHYTHM, RRR, +S1, +S2. absent: Bradycardia, Tachycardia, Irregular Rhythm, JVD, +S4 - GI/Abdominal Exam GI & Abdominal Exam: Normal Bowel Sounds, Soft. absent: Diminished Bowel Sounds, Distended, Firm, Hyperactive Bowel Sounds, Hypoactive Bowel Sounds, Rigid, Tenderness - Extremities Exam Upper extremity: Left UE: unremarkable, full active and passive ROM, no deformity Right UE: bandaged/immobilized Lower extremity: Bilateral LE intact, full active/passive ROM, no pedal edema or tenderness, no swelling appreciated - Neurological Exam awake and alert, moving all extremities (except RUE) spontaneously, following all commands appropriately - Psychiatric Exam Psychiatric exam: Normal Affect, Normal Mood - Skin Skin Exam: Dry, Intact, Normal Color, Warm Discharge Plan - Discharge Medications Prescriptions: Cephalexin [Keflex] 500 mg PO Q6H #28 capsule oxyCODONE/Acetaminophen [Percocet 5/325 mg Tab] 1 ea PO Q4H PRN #30 tab PRN Reason: Pain, Moderate (4-7) - Follow Up Plan Condition: STABLE Disposition: REHAB FACILITY/REHAB UNIT Patient education suggested?: Yes Instructions: Upper Arm Fracture, Weakness (GEN) Additional Instructions: You were seen in the hospital for your fall and arm fracture. The fracture was repaired by Ortho. Physical therapy saw you and recommended Sub-acute rehab to recondition yourself and improve your gait to prevent further falls. You have been given scripts for Percocet (pain medication) and Keflex (an antibiotic); please fill them and take only as directed. Please resume all other home medications as prescribed. Please follow up with your PMD (Dr. Soto) within 1 week and Ortho (Dr. Baldwin) as scheduled. Please present to the nearest emergency department if you experience worsening or newly concerning symptoms. Referrals: Yannick Baldwin MD [Staff Provider] - Darío Soto MD [Primary Care Provider] - <Carlin Oquendo - Last Filed: 02/10/18 19:32> Provider - Provider Date of Admission: 02/04/18 01:43 Attending physician: Carlin Oquendo MD Primary care physician: Darío Soto MD Consults: 02/04/18 03:28 Social Work Referral Routine Comment: eval Physician Instructions: Reason For Exam: discharge planning 02/04/18 07:59 Physician Consult Routine Comment: Consulting Provider: Yannick Baldwin Consulting Physician: Yannick Baldwin Reason for Consult: right shoulder fracture 02/04/18 08:10 Consult [Physician Consult] Routine Comment: Consulting Provider: Kendall Obando Consulting Physician: Kendall Obando Reason for Consult: PreOp 02/08/18 19:12 Case Management Referral Routine Comment: Physician Instructions: Reason For Exam: PT recs DAY Reason for Referral: Discharge Planning Hospital Course - Lab Results Lab Results: Most Recent Lab Values WBC 6.8 10^3/uL (4.5-11.0) D 02/10/18 08:00 RBC 2.96 10^6/uL (3.5-6.1) L 02/10/18 08:00 Hgb 8.2 g/dL (12.0-16.0) L 02/10/18 08:00 Hct 25.3 % (36.0-48.0) L 02/10/18 08:00 MCV 85.5 fl (80.0-105.0) 02/10/18 08:00 MCH 27.7 pg (25.0-35.0) 02/10/18 08:00 MCHC 32.4 g/dl (31.0-37.0) 02/10/18 08:00 RDW 14.9 % (11.5-14.5) H 02/10/18 08:00 Plt Count 228 10^3/uL (120.0-450.0) 02/10/18 08:00 MPV 9.8 fl (7.0-11.0) 02/10/18 08:00 Gran % 61.9 % (50.0-68.0) 02/10/18 08:00 Lymph % (Auto) 26.6 % (22.0-35.0) 02/10/18 08:00 Pershing % (Auto) 7.5 % (1.0-6.0) H 02/10/18 08:00 Eos % (Auto) 3.7 % (1.5-5.0) 02/10/18 08:00 Baso % (Auto) 0.3 % (0.0-3.0) 02/10/18 08:00 Gran # 4.22 (1.4-6.5) 02/10/18 08:00 Lymph # (Auto) 1.8 (1.2-3.4) 02/10/18 08:00 Pershing # (Auto) 0.5 (0.1-0.6) 02/10/18 08:00 Eos # (Auto) 0.3 (0.0-0.7) 02/10/18 08:00 Baso # (Auto) 0.02 K/mm3 (0.0-2.0) 02/10/18 08:00 PT 12.0 SECONDS (9.4-12.5) 02/06/18 07:40 INR 1.04 02/06/18 07:40 APTT 27.2 Seconds (25.1-36.5) 02/06/18 07:40 Sodium 138 mmol/L (132-148) 02/08/18 05:30 Potassium 4.0 mmol/L (3.6-5.0) 02/08/18 05:30 Chloride 103 mmol/L (98-107) 02/08/18 05:30 Carbon Dioxide 26 mmol/L (21-33) 02/08/18 05:30 Anion Gap 12 (10-20) 02/08/18 05:30 BUN 29 mg/dL (7-21) H 02/08/18 05:30 Creatinine 1.2 mg/dl (0.7-1.2) 02/08/18 05:30 Est GFR ( Amer) 54 02/08/18 05:30 Est GFR (Non-Af Amer) 45 02/08/18 05:30 POC Glucose (mg/dL) 134 mg/dL (65-110) H 02/10/18 16:28 Random Glucose 188 mg/dL (70-110) H 02/08/18 05:30 Calcium 8.4 mg/dL (8.4-10.5) 02/08/18 05:30 Phosphorus 3.0 mg/dL (2.5-4.5) 02/05/18 07:30 Magnesium 1.8 mg/dL (1.7-2.2) 02/05/18 07:30 Iron 40 ug/dL (45-180) L 02/04/18 07:30 TIBC 272 ug/dL (265-497) 02/04/18 07:30 % Saturation 15 % (20-55) L 02/04/18 07:30 Ferritin 18.8 ng/mL 02/04/18 07:30 Total Bilirubin 0.4 mg/dL (0.2-1.3) 02/05/18 07:30 AST 59 U/L (14-36) H D 02/05/18 07:30 ALT 24 U/L (7-56) 02/05/18 07:30 Alkaline Phosphatase 86 U/L (38-126) 02/05/18 07:30 Total Protein 7.2 g/dL (5.8-8.3) 02/05/18 07:30 Albumin 3.6 g/dL (3.0-4.8) 02/05/18 07:30 Globulin 3.6 gm/dL 02/05/18 07:30 Albumin/Globulin Ratio 1.0 (1.1-1.8) L 02/05/18 07:30 Blood Type O POSITIVE 02/06/18 08:50 Blood Type Confirm O POSITIVE 02/06/18 09:09 Antibody Screen Positive 02/06/18 08:50 Antibody Identification Anti Fya 02/06/18 08:50 Antigen Identification Fya Antigen - NEGATIVE 02/06/18 08:50 Crossmatch See Detail 02/06/18 08:50 BBK History Checked No verified bt 02/06/18 08:50 - Hospital Course Hospital Course: Pt seen and examined. I reviewed the note of the certified medical transcriptionist and I agree with the note including the assessment and plan. I reviewed the medications and last labs. Pt with R humerus fx due to fall. She had surgery by Dr Christine and had no major complications. She has her pain under control. She is going to [facility] for DAY. Her DM-2 is controlled and she is on an ISS with coverage. She is on pain meds.
--- NOTE | 2018-02-10 10:32 | RAD ---
Date of service: 02/10/2018 PROCEDURE: Radiographs of the Right Shoulder HISTORY: s/p ORIF R proximal humerus fx COMPARISON: No prior. FINDINGS: BONES: There has been internal fixation of a humeral fracture with a plate and multiple screws. JOINTS: Degenerative changes in the acromioclavicular joint SOFT TISSUES: Normal. OTHER FINDINGS: None. IMPRESSION: As above
[2018-02-10] MEDS: Cholecalciferol 1,000 INTLU TAB PO SCH (10:39)
[2018-02-10] MEDS: TERAZOSIN HCL 5 MG PO SCH (10:40)
[2018-02-10 15:20] VITALS: BP 100/58; PULSE 71; TEMP 98.5; O2SAT 97
== END 2018-02-10 21:02 | DRG 494 ==
LOC: ED 23:07 → ERH 02-04 01:43 → 5RNO 02-04 03:01
PROVIDERS: ADMIT Internal Medicine Nephrology; ATTEND Internal Medicine Nephrology
PROC: 3E0T3BZ Introduction of Anesthetic Agent into Peripheral Nerves and Plexi, Percutaneous Approach (ICD-10-PCS; 2018-02-07)
PROC: 0PSC04Z Reposition Right Humeral Head with Internal Fixation Device, Open Approach (ICD-10-PCS; principal; 2018-02-07 10:00)
DX: S42.211A Unspecified displaced fracture of surgical neck of right humerus, initial encounter for closed fracture (principal); W01.0XXA Fall on same level from slipping, tripping and stumbling without subsequent striking against object, initial encounter; E11.40 Type 2 diabetes mellitus with diabetic neuropathy, unspecified; I10 Essential (primary) hypertension; Z79.4 Long term (current) use of insulin; Y92.009 Unspecified place in unspecified non-institutional (private) residence as the place of occurrence of the external cause; Z79.82 Long term (current) use of aspirin